=== PATIENT | female | born 1940 | race Two or more races ===

== ENCOUNTER 2016-05-22 17:59 | Inpatient (IN) | payer MEDICARE, OTHER ==
[~2016-05-22] VITALS: Ht 167.6 cm; Wt 91.7 kg
--- NOTE | 2016-05-22 18:02 | NUR ---
[id number] from home: aloc, facial twitching L side, hyperglycemia (high read) unknown time of onset / last know time well - unknown, slurred speech. resp is even and unlabored with nad noted. skin is warm and dry. Dr Silvestre at BS for eval.
--- NOTE | 2016-05-22 18:06 | NUR ---
CODE STROKE CALLED
--- NOTE | 2016-05-22 18:08 | NUR ---
CALLED [facility]'S TELESTROKE HOTLINE AT [phone], SPOKE WITH JERRY, JOY PT, AWAITING CALL BACK FROM
--- NOTE | 2016-05-22 18:21 | NUR ---
oncodalys neurologist repaged, dr villanueva
[2016-05-22] MEDS ORDERED: INSU100I14 SQ (18:24)
[2016-05-22] MEDS ORDERED: PIOG15TA3 PO (18:24)
[2016-05-22] MEDS ORDERED: ATOR40TA PO (18:24)
[2016-05-22] MEDS ORDERED: ASPI81TA2 PO (18:24)
[2016-05-22] MEDS ORDERED: BENA20TA2 PO (18:24)
[2016-05-22] MEDS ORDERED: GLIP10TA11 PO (18:24)
[2016-05-22] MEDS ORDERED: EXEN2PEN SQ (18:24)
[2016-05-22] MEDS ORDERED: INSU100I19 SQ (18:24)
[2016-05-22 18:28] LABS: BASOPHILS # (AUTO) 0.1 /CMM (0.0-0.2); BASOPHILS % (AUTO) 1.2 % (0.0-2.0); EOSINOPHILS % (AUTO) 0.2 % (0.0-6.0); HEMATOCRIT 39 % (33-45); HEMOGLOBIN 12.2 g/dL (11.5-14.8); LYMPHOCYTES # (AUTO) 0.5 /CMM (0.8-4.8); LYMPHOCYTES % (AUTO) 12.4 % (20.0-44.0); MEAN CORPUSCULAR HEMOGLOBIN 32 PG (26.0-33.0); MEAN CORPUSCULAR HGB CONC 32 g/dl (31.0-36.0); MEAN CORPUSCULAR VOLUME 100 fL (82-100); MONOCYTES # (AUTO) 0.3 /CMM (0.1-1.30); MONOCYTES % (AUTO) 6.8 % (2.0-12.0); NEUTROPHILS # (AUTO) 3.4 /CMM (1.8-8.9); NEUTROPHILS % (AUTO) 79.4 % (43.0-81.0); PLATELET COUNT (AUTO) 89 /CMM (150-450); RDW COEFFICIENT OF VARIATION 14.1 (11.5-15.0); RED BLOOD CELL COUNT(AUTO) 3.87 MIL/uL (4.0-5.2); WHITE BLOOD COUNT (AUTO) 4.3 K/uL (4.3-11.0)
[2016-05-22 18:41] LABS: PROTHROMBIN TIME 10.5 SECS (9.5-12.7)
[2016-05-22 18:42] LABS: CALCIUM, SERUM 8.4 mg/dL (8.5-10.1); CARBON DIOXIDE 20 mmol/L (21-32); CHLORIDE 94 mmol/L (98-107); CREATININE 2.1 mg/dL (0.6-1.3); POTASSIUM 5.7 mmol/L (3.5-5.1); SODIUM SERUM 129 mmol/L (136-145); UREA NITROGEN, BLOOD 55 mg/dL (7-18)
[2016-05-22 18:42] LABS: ABG BASE EXCESS -4.2 mmol/L; ABG OXYGEN SATURATION 94.2 % (92.0-98.5); ABG PCO2 40.5 mmHg (35.0-45.0); ABG PH 7.338 (7.350-7.450); ABG PO2 78.6 mmHg (75.0-100.0); ABG TOTAL HEMOGLOBIN 12.7 G/dL (12.0-16.0); AaDO2 22.6 mmHg; COHb 0.8 % (0.5-1.5); MetHb 0.3 % (0.0-1.5); O2Hb 93.2 % (94.0-97.0); SITE, ABG Right Brachial; VENT MODE, BG room air
[2016-05-22 18:47] LABS: TROPONIN I < 0.017 ng/mL (0.00-0.056)
[2016-05-22 19:02] LABS: BAND % (MANUAL) 1 % (0.0-5.0); LYMPHOCYTES % (MANUAL) 11 % (16-48); MONOCYTES % (MANUAL) 7 % (0-11.0); NEUTROPHILS % (MANUAL) 81 (42-76); PLATELET ESTIMATE DECREASED
[2016-05-22 19:20] LABS: GLUCOSE 980 mg/dL (74-106)
[2016-05-22] MEDS ORDERED: CEFTRIAXONE 2 G in IV D5W 100 ML IV SCH (19:30)
[2016-05-22] MEDS ORDERED: ACYCLOVIR IV 1 GM in IV D5W 250 ML IV ONE (19:30)
[2016-05-22] MEDS ORDERED: INSULIN REGULAR, HUMAN 100 UNIT in IV NS 0.9% 99 ML IV PRN ×2 (19:30)
[2016-05-22] MEDS ORDERED: VANCOMYCIN 1 GM in IV D5W 250 ML IV ONE (19:30)
[2016-05-22] MEDS ORDERED: IV SET PRIMARY PUMP SET 1 EA INFUS.SET MC ONE ×3 (19:33→23:30)
[2016-05-22 19:36] LABS: ALBUMIN 3.3 g/dL (3.4-5.0); BILIRUBIN,DIRECT 0.1 mg/dL (0.0-0.2); BILIRUBIN,TOTAL 0.7 mg/dL (0.2-1.0); TOTAL PROTEIN, SERUM 7.8 g/dL (6.4-8.2)
[2016-05-22] MEDS: LEVETIRACETAM (500MG) 500 MG in IV NS 0.9% 100 ML IV SCH ×2 (19:40→20:01)
--- NOTE | 2016-05-22 19:45 | NUR ---
STARTED INSULIN PER MD HERNÁNDEZ
[2016-05-22] MEDS ORDERED: LORAZEPAM INJ 2 MG/ML VIAL ONE ×2 (19:53→20:24)
[2016-05-22 19:58] LABS: LACTIC ACID 1.9 mmol/L (0.4-2.0)
[2016-05-22] MEDS ORDERED: LORAZEPAM INJ 2 MG/ML VIAL IV ONE ×2 (20:00→22:30)
--- NOTE | 2016-05-22 20:40 | NUR ---
MD HERNÁNDEZ AT BED SIDE FOR LP
--- NOTE | 2016-05-22 20:59 | NUR ---
CALLED NURSING SUP. FOR ICU BED
--- NOTE | 2016-05-22 20:59 | NUR ---
NAEL JOSEPH, KENNY MARS COUGAR HUNTER
[2016-05-22] MEDS ORDERED: HALOPERIDOL LACTATE INJ 5 MG/ML VIAL ONE (21:11)
--- NOTE | 2016-05-22 21:15 | NUR ---
MEDICATED PT ORDERED
--- NOTE | 2016-05-22 21:24 | NUR ---
[facility] REPAGED
[2016-05-22 21:40] LABS: APPEARANCE,URINE Clear (CLEAR); BILIRUBIN,URINE Negative (NEGATIVE); BLOOD, URINE Small Ery/uL (NEGATIVE); COLOR,URINE Yellow (YELLOW); KETONES,URINE 15 (NEGATIVE); LEUKOCYTE ESTERASE ,URINE Negative (NEGATIVE); NITRITE, URINE Positive (NEGATIVE); PROTEIN,URINE 30 mg/dl (NEGATIVE); UGLUCOSE 500 MG/DL mg/dL (NEGATIVE); UROBILINOGEN,URINE 0.2 EU/dL (0.2)
--- NOTE | 2016-05-22 21:41 | NUR ---
JENSEN CATH PLACED WITH ASSISTANCE FROM ARVIND LEMON
[2016-05-22 21:44] LABS: CSF GLUCOSE 421 mg/dL (40-70); CSF PROTEIN 56.5 mg/dL (15-45)
[2016-05-22 21:50] LABS: ADD URINE CULTURE NO; BACTERIA,URINE Few /HPF (None Seen); SQUAMOUS EPITHELIAL CELL,UR Rare /HPF (None Seen); WBC,URINE 0-2 /HPF (0-3)
[2016-05-22] MEDS ORDERED: LABETALOL 20 MG/4 ML VIAL ONE (21:53)
--- NOTE | 2016-05-22 22:19 | NUR ---
REPORT GIVEN TO ARVIND SUAZO FOR ICU ADMISSION
[2016-05-22] MEDS ORDERED: LABETALOL HCL IV 100MG VIAL IV ONE (22:30)
[2016-05-22] MEDS ORDERED: HALOPERIDOL LACTATE INJ 5 MG/ML VIAL IM ONE (22:30)
[2016-05-22 23:00] VITALS: BP 145/103
--- NOTE | 2016-05-22 23:00 | NUR ---
INDUSTRIAL TECHNOLOGY EDUCATION TEACHER RCD PT W/DX AMS. PT IS NON RESPONSIVE UNABLE TO FOLLOW COMMANDS. NON VERBAL AT THIS TIME. PT BECOMES VERY AGITATED WHEN TOUCHED FOR REPOSITIONING/ASSESSMENT. NSR ON MONITOR. ON 10 L SIMPLE MASK. NO RESP DIST NOTED AT THIS TIME. EMPTIED 925 ML OF YELLOW CLOUDY URINE FROM JENSEN CATHETER. SKIN INTACT. PT RCD ON 9 UNITS INSULIN DRIP. AWAITING ORDERS AT THIS TIME.
[2016-05-22 23:03] LABS: CSF APPEARANCE CLEAR (CLEAR); CSF COLOR COLORLESS (COLORLESS); CSF WHITE BLOOD CELL COUNT 0 /cumm (0-5); CSF WHITE BLOOD CELL COUNT 1.2 /cumm (0-5)
[2016-05-22] MEDS ORDERED: MAGNESIUM HYDROXIDE 30 ML UDC PO PRN (23:30)
[2016-05-22] MEDS ORDERED: IV NS 0.9% 1,000 ML ONE (23:30)
[2016-05-22] MEDS ORDERED: ACETAMINOPHEN 325 MG TABLET PO PRN (23:30)
[2016-05-22] MEDS ORDERED: ONDANSETRON HCL/PF 4 MG/2 ML VIAL IVP PRN (23:30)
[2016-05-22] MEDS ORDERED: HYDROCODONE/APAP 5/325MG 1 EACH TABLET PO PRN (23:30)
[2016-05-22] MEDS ORDERED: MAG HYDROX/AL HYDROX/SIMETH 30 ML UDC PO PRN (23:30)
[2016-05-22] MEDS ORDERED: Z GUARD REMEDY 2 OZ OINT TP PRN (23:30)
[2016-05-22] MEDS ORDERED: ZOLPIDEM TARTRATE 5 MG TABLET PO PRN (23:30)
--- NOTE | 2016-05-22 23:30 | NUR ---
PANTOGRAPH TRANSFERRER UNABLE TO COMPLETE ASSESSMENT PT IS NON VERBAL AT THIS TIME. NO FAMILY AT BEDSIDE.
[2016-05-22] MEDS: IV NS 0.9% 1,000 ML IV PRN (23:35)
[2016-05-23] VITALS (31 sets, daily range): BP systolic 108–212; BP diastolic 51–191
[2016-05-23 00:04] LABS: CALCIUM, SERUM 8.7 mg/dL (8.5-10.1); CREATININE 2.1 mg/dL (0.6-1.3); POTASSIUM 4.8 mmol/L (3.5-5.1)
[2016-05-23] MEDS: BLOOD SUGAR DIAGNOSTIC 1 EACH STRIP IN SCH ×12 (00:09→20:50)
[2016-05-23] MEDS: INSULIN REGULAR, HUMAN 100 UNIT in IV NS 0.9% 99 ML IV PRN ×4 (00:12→05:11)
[2016-05-23] MEDS ORDERED: HEPARIN SODIUM, PORCINE 5000 UNITS/1 ML VIAL SQ SCH (01:30)
[2016-05-23] MEDS ORDERED: HEPARIN SODIUM, PORCINE 5000 UNITS/1 ML VIAL ONE (01:33)
[2016-05-23] MEDS ORDERED: LORAZEPAM INJ 2 MG/ML VIAL ONE (01:43)
[2016-05-23] MEDS: LORAZEPAM INJ 2 MG/ML VIAL IV PRN ×3 (01:47→20:45)
[2016-05-23] MEDS ORDERED: IV NS 0.9% 100 ML IV ONE (04:22)
[2016-05-23] MEDS ORDERED: ACYCLOVIR IV 1 GM/20 ML VIAL IV ONE (04:40)
[2016-05-23] MEDS ORDERED: INSULIN REGULAR, HUMAN 100 UNIT/ML 10 ML VIAL ONE (04:41)
[2016-05-23] MEDS ORDERED: IV D5W 250 ML IV ONE (04:47)
[2016-05-23] MEDS ORDERED: ACYCLOVIR IV 1 GM in IV D5W 250 ML IV SCH (05:00)
[2016-05-23 05:06] LABS: BASOPHILS % (AUTO) 0.2 % (0.0-2.0); HEMATOCRIT 35 % (33-45); HEMOGLOBIN 11.8 g/dL (11.5-14.8); LYMPHOCYTES # (AUTO) 0.8 /CMM (0.8-4.8); LYMPHOCYTES % (AUTO) 12.1 % (20.0-44.0); MEAN CORPUSCULAR HEMOGLOBIN 32 PG (26.0-33.0); MEAN CORPUSCULAR HGB CONC 34 g/dl (31.0-36.0); MEAN CORPUSCULAR VOLUME 94 fL (82-100); MONOCYTES # (AUTO) 0.3 /CMM (0.1-1.30); MONOCYTES % (AUTO) 4.6 % (2.0-12.0); NEUTROPHILS # (AUTO) 5.3 /CMM (1.8-8.9); NEUTROPHILS % (AUTO) 83.1 % (43.0-81.0); PLATELET COUNT (AUTO) 124 /CMM (150-450); RDW COEFFICIENT OF VARIATION 14.8 (11.5-15.0); RED BLOOD CELL COUNT(AUTO) 3.67 MIL/uL (4.0-5.2); WHITE BLOOD COUNT (AUTO) 6.4 K/uL (4.3-11.0)
[2016-05-23] MEDS: IV NS 0.9% 1,000 ML IV PRN (05:11)
[2016-05-23 05:35] LABS: CALCIUM, SERUM 8.6 mg/dL (8.5-10.1); CREATININE 2.1 mg/dL (0.6-1.3); MAGNESIUM 2.3 mg/dL (1.8-2.4); PHOSPHORUS 3.1 mg/dL (2.5-4.9); POTASSIUM 4.2 mmol/L (3.5-5.1)
[2016-05-23] MEDS ORDERED: DEXTROSE 50%-WATER 50 ML DISP.SYRIN IV PRN (06:00)
--- NOTE | 2016-05-23 06:00 | NUR ---
DERRICK BUILDER RCD ORDERS TO DC INSULIN DRIP AND START PT ON Q4HRS ACCU CHECK. CONTINUE TO MONITOR.
[2016-05-23] MEDS: INSULIN REGULAR, HUMAN 100 UNIT/ML 3 ML VIAL SQ PRN ×5 (06:09→20:51)
--- NOTE | 2016-05-23 06:34 | NUR ---
GRAZING EXAMINER PT REMAINS VERY AGITATED. ABLE TO OPEN EYES AND SQUEEZE HANDS. ONLY ABLE TO MOUTH ONE WORD ANSWERS AT THIS TIME.
[2016-05-23] MEDS: PANTOPRAZOLE 40 MG TABLET.DR PO SCH (07:30)
[2016-05-23] MEDS: BENAZEPRIL HCL 20 MG TABLET PO SCH (08:27)
[2016-05-23] MEDS: ATORVASTATIN 40 MG TABLET PO SCH (08:27)
[2016-05-23] MEDS: ASPIRIN 81 MG TAB.CHEW PO SCH (08:27)
--- NOTE | 2016-05-23 08:28 | NUR ---
PT LETHARGIC BUT AROUSABLE TO VERBAL STIMULI. FOLLOWS DIRECTIONS TO SQUEEZE HANDS AND TRIES TO OPEN HER EYES. IN AND OUT OF SLEEP AND AGITATION, PULLS OFF EKG LEADS AND GOWN. RESPONDS TO DIRECTIONS NOT TO TAKE OFF THE LINES, BUT INTERMITTENTLY WAKES AND PULLS AT MONITORING EQUIPMENT.
[2016-05-23] MEDS ORDERED: SECONDARY IV SET 1 EA INFUS.SET MC ONE (08:30)
--- NOTE | 2016-05-23 10:08 | NUR ---
LEFT WRIST 20G INFILTRATED. ELEVATED SITE. [address] PIV BUT UNSUCCESSFUL. MD WOLFF FOR MIDLINE INSERTION. PARAMEDICAL AIDE NOTIFIED AND IV NURSE IS NOTIFIED.
[2016-05-23] MEDS: HEPARIN SODIUM, PORCINE 5000 UNITS/1 ML VIAL SQ SCH ×2 (11:54→20:46)
--- NOTE | 2016-05-23 12:00 | NUR ---
DR. COLVIN ON THE UNIT TO EVAL THE PATIENT. DISCUSSED CASE WITH MD, PT HAS NEVER HAD HISTORY OF SZ, IT IS MOSTLY LIKELY FROM THE NK WHICH CAUSE THE NEW ONSET. SHE STOPS KEPPRA AND ORDERS FOR FOLLOW UP CT HEAD. ACKNOWLEDGES THE LETHARGIC STATUS OF THE PATIENT SHE RECVD KEPPRA AND ATIVAN AND HALDOL IN THE E.R. AND RENAL FUNCTION IS SLOW (MORNING CREATININE IS 2.1)
--- NOTE | 2016-05-23 12:01 | NUR ---
DR. OSMAN ON THE UNIT TO EVAL THE PATIENT. HE ORDERS VENOUS DUPLEX STAT, KEEP HER NPO FOR NOW UNTIL SHE IS MORE LUCID THEN WE CAN RESTART HER PO MEDICATIONS. DISCONTINUES EMPIRIC ANTIBIOTICS AND ROUTINE KEPPRA. PT IS IN NK WILL TREAT.
[2016-05-23] MEDS ORDERED: D5W IV SCH (17:00)
[2016-05-23] MEDS ORDERED: ACYCLOVIR IV SCH (17:00)
--- NOTE | 2016-05-23 17:26 | NUR ---
PT WAS ABLE TO GET OUT OF HER RESTRAINTS AND CLIMBED OUT OF BED, FOUND SITTING ON THE FLOOR. ON INITIAL ASSESSMENT NO BRUISING OR REDNESS NOTED ON HEAD OR BODY. CT ORDER CHANGED TO STAT ORDER. MENTAL STATUS IS THE SAME IN THAT SHE IS LETHARGIC AND RESPONSIVE TO HER NAME ABLE TO ANSWER SIMPLE QUESTIONS AND SQUEEZE HANDS AND OPEN EYES. VITALS ARE STABLE. LEHR TENDER NOTIFIED, DR. OSMAN NOTIFIED.
--- NOTE | 2016-05-23 20:45 | NUR ---
AUTO ELECTRICIAN PT AGITATED REMOVING ECG LEADS AND ATTEMPTING TO SIT UP IN BED. ATIVAN 1 MG IVP GIVEN. CONTINUE TO MONITOR.
[2016-05-23] MEDS ORDERED: hydrALAZINE HCL IV 20 MG VIAL ONE (21:36)
[2016-05-23] MEDS: hydrALAZINE HCL IV 20 MG VIAL IV PRN (21:40)
--- NOTE | 2016-05-23 21:40 | NUR ---
BLIND STITCH MACHINE OPERATOR BP 211/89 HYDRALAZINE 10 MG IV GIVEN. CONTINUE TO MONITOR.
[2016-05-24] VITALS (26 sets, daily range): BP systolic 135–178; BP diastolic 49–135
[2016-05-24] MEDS: BLOOD SUGAR DIAGNOSTIC 1 EACH STRIP IN SCH ×6 (01:10→21:13)
[2016-05-24] MEDS: LORAZEPAM INJ 2 MG/ML VIAL IV PRN ×4 (01:34→16:48)
[2016-05-24] MEDS: IV NS 0.9% 1,000 ML IV PRN ×3 (01:34→21:00)
--- NOTE | 2016-05-24 01:35 | NUR ---
ORE CRUSHING DUST COLLECTOR PT AGITATED REMOVING ECG LEADS AND ATTEMPTING TO SIT UP IN BED. PT WILL NOT FOLLOW COMMANDS. UNABLE TO REDIRECT. MUMBLES ANSWERS. ATIVAN 1 MG IVP GIVEN. CONTINUE TO MONITOR.
[2016-05-24] MEDS: INSULIN REGULAR, HUMAN 100 UNIT/ML 3 ML VIAL SQ PRN ×5 (01:36→21:15)
[2016-05-24] MEDS ORDERED: hydrALAZINE HCL IV 20 MG VIAL ONE (03:29)
[2016-05-24] MEDS: hydrALAZINE HCL IV 20 MG VIAL IV PRN ×3 (03:33→17:23)
--- NOTE | 2016-05-24 03:35 | NUR ---
TRANSLATOR DEAF BP 189/71 HYDRALAZINE 10 MG IV GIVEN CONTINUE TO MONITOR.
[2016-05-24 05:21] LABS: EOSINOPHILS % (AUTO) 0.2 % (0.0-6.0); HEMATOCRIT 37 % (33-45); HEMOGLOBIN 12.3 g/dL (11.5-14.8); LYMPHOCYTES # (AUTO) 1.8 /CMM (0.8-4.8); LYMPHOCYTES % (AUTO) 15.5 % (20.0-44.0); MEAN CORPUSCULAR HEMOGLOBIN 31 PG (26.0-33.0); MEAN CORPUSCULAR HGB CONC 33 g/dl (31.0-36.0); MEAN CORPUSCULAR VOLUME 95 fL (82-100); MONOCYTES # (AUTO) 0.4 /CMM (0.1-1.30); MONOCYTES % (AUTO) 3.7 % (2.0-12.0); NEUTROPHILS # (AUTO) 9.4 /CMM (1.8-8.9); NEUTROPHILS % (AUTO) 80.6 % (43.0-81.0); PLATELET COUNT (AUTO) 128 /CMM (150-450); RDW COEFFICIENT OF VARIATION 14.5 (11.5-15.0); RED BLOOD CELL COUNT(AUTO) 3.92 MIL/uL (4.0-5.2); WHITE BLOOD COUNT (AUTO) 11.6 K/uL (4.3-11.0)
[2016-05-24 05:22] LABS: CALCIUM, SERUM 8.5 mg/dL (8.5-10.1); CREATININE 1.6 mg/dL (0.6-1.3); MAGNESIUM 2.2 mg/dL (1.8-2.4); PHOSPHORUS 2.7 mg/dL (2.5-4.9); POTASSIUM 4.2 mmol/L (3.5-5.1)
--- NOTE | 2016-05-24 05:39 | NUR ---
HAIR AND MAKEUP DESIGNER PT REMOVED ALL LEADS AND CONTINUES TO STRUGGLE TO GET OUT OF BED. ATIVAN 1 MG IVP GIVEN. PT DOES NOT FOLLOW COMMANDS ONLY ANSWERS TO NAME BUT CONTINUES TO STRUGGLE. CONTINUE TO MONITOR.
[2016-05-24] MEDS: PANTOPRAZOLE 40 MG TABLET.DR PO SCH (07:30)
--- NOTE | 2016-05-24 07:51 | NUR ---
PT PRESENTS WITH FEVER OF 100.3, SINUS TACH AT 107. BLOOD PRESSURE IS HTNSIVE AT 161/70. PA WORKING WITH DR. OSMAN ON THE UNIT TO EVAL THE PATIENT. ORDERS BLOOD CULTURES (CALLED LAB TO NOTIFY) ORDER FOR UA (COLLECTED AND LAB NOTIFIED FOR PICKUP)
[2016-05-24 08:14] LABS: BAND % (MANUAL) 4 % (0.0-5.0); LYMPHOCYTES % (MANUAL) 12 % (16-48); MONOCYTES % (MANUAL) 3 % (0-11.0); NEUTROPHILS % (MANUAL) 81 (42-76)
[2016-05-24 08:15] LABS: ANISOCYTOSIS 1+; PLATELET ESTIMATE DECREASED
[2016-05-24 08:28] LABS: BILIRUBIN,URINE NEGATIVE (NEGATIVE); BLOOD, URINE 2+ Ery/uL (NEGATIVE); COLOR,URINE YELLOW (YELLOW); KETONES,URINE TRACE (NEGATIVE); LEUKOCYTE ESTERASE ,URINE NEGATIVE (NEGATIVE); NITRITE, URINE NEGATIVE (NEGATIVE); PROTEIN,URINE 2+ mg/dl (NEGATIVE); UGLUCOSE 2+ mg/dL (NEGATIVE); UROBILINOGEN,URINE 0.2 EU/dL (0.2)
[2016-05-24 08:36] LABS: CLINITEST,URINE 3/4%
[2016-05-24 08:38] LABS: ADD URINE CULTURE NO; BACTERIA,URINE Few /HPF (None Seen); RBC,URINE 21-50 /HPF (0-2); SQUAMOUS EPITHELIAL CELL,UR Moderate /HPF (None Seen)
[2016-05-24 08:39] LABS: APPEARANCE,URINE CLOUDY (CLEAR); FINE GRANULAR CASTS,URINE Few /LPF (None Seen); URINE AMORPHOUS URATE Few /HPF (None Seen); YEAST,URINE Few /HPF (None Seen)
[2016-05-24] MEDS: ASPIRIN 81 MG TAB.CHEW PO SCH (08:42)
[2016-05-24] MEDS: BENAZEPRIL HCL 20 MG TABLET PO SCH (08:43)
[2016-05-24] MEDS: ATORVASTATIN 40 MG TABLET PO SCH (08:43)
[2016-05-24] MEDS: HEPARIN SODIUM, PORCINE 5000 UNITS/1 ML VIAL SQ SCH ×2 (08:47→21:06)
[2016-05-24] MEDS ORDERED: SECONDARY IV SET 1 EA INFUS.SET MC ONE ×2 (09:01→18:09)
[2016-05-24 09:59] LABS: CREATINE KINASE MB 2.2 ng/mL (0-3.6)
--- NOTE | 2016-05-24 10:47 | NUR ---
CALLED PHARMACY X3 FOR 0900 AZITHROMYCIN EACH TIME THEY STATE THEY WILL SEND IT UP.
[2016-05-24] MEDS: AZITHROMYCIN 500 MG in IV D5W 250 ML IV SCH (11:02)
--- NOTE | 2016-05-24 11:03 | NUR ---
VIRAL SWAB OBTAINED, CALLED LAB FOR PICKUP.
--- NOTE | 2016-05-24 11:41 | NUR ---
DR. COLVIN ON THE UNIT TO EVAL THE PATIENT, SHE GIVES ORDERS FOR EEG ROUTINE
--- NOTE | 2016-05-24 13:05 | NUR ---
PT ATTEMPTING TO CLIMB OUT OF BED, SHE IS ABLE TO SLIP OUT OF RESTRAINTS. LETHARGIC BUT ALERT TO NAME FOLLOWS SIMPLE COMMANDS SUCH SQUEEZE MY HANDS, BUT REMAINS INTERMITTENTLY AGITATED WHEN AWAKE, SHE IS TRYING TO DISROBE AND HAS TRIED TO PULL AT HER IV MULTIPLE TIMES. TRYING TO GET UP OUT OF BED. GAVE ATIVAN FOR SAFETY 1MG.
--- NOTE | 2016-05-24 17:25 | NUR ---
DISCUSSED CASE WITH PT'S HE STATES THAT SHE HAS NO KNOWN ALLERGIES.
[2016-05-24] MEDS: CEFTRIAXONE 1 G in IV D5W 50 ML IV SCH (18:14)
--- NOTE | 2016-05-24 18:41 | NUR ---
CORNELIUS FROM INFECTIOUS DISEASE IN TO EVALUATE THE PATIENT. ORDERS FOR BLOOD TESTS INCLUDING WEST NILE CSF AND SERUM AND HIV ANTIGEN.
[2016-05-25] VITALS (32 sets, daily range): BP systolic 109–202; BP diastolic 51–109
[2016-05-25] MEDS: BLOOD SUGAR DIAGNOSTIC 1 EACH STRIP IN SCH ×6 (01:01→21:37)
[2016-05-25] MEDS: INSULIN REGULAR, HUMAN 100 UNIT/ML 3 ML VIAL SQ PRN ×6 (01:03→21:35)
[2016-05-25] MEDS: IV NS 0.9% 1,000 ML IV PRN (01:45)
[2016-05-25] MEDS: hydrALAZINE HCL IV 20 MG VIAL IV PRN ×2 (02:03→09:14)
[2016-05-25] MEDS: LORAZEPAM INJ 2 MG/ML VIAL IV PRN ×3 (02:30→16:49)
[2016-05-25 04:53] LABS: BASOPHILS % (AUTO) 0.3 % (0.0-2.0); HEMATOCRIT 34 % (33-45); HEMOGLOBIN 11.2 g/dL (11.5-14.8); LYMPHOCYTES % (AUTO) 17.2 % (20.0-44.0); MEAN CORPUSCULAR HEMOGLOBIN 31 PG (26.0-33.0); MEAN CORPUSCULAR HGB CONC 33 g/dl (31.0-36.0); MEAN CORPUSCULAR VOLUME 95 fL (82-100); MONOCYTES # (AUTO) 0.3 /CMM (0.1-1.30); MONOCYTES % (AUTO) 4.1 % (2.0-12.0); NEUTROPHILS # (AUTO) 4.8 /CMM (1.8-8.9); NEUTROPHILS % (AUTO) 78.4 % (43.0-81.0); RDW COEFFICIENT OF VARIATION 14.9 (11.5-15.0); RED BLOOD CELL COUNT(AUTO) 3.57 MIL/uL (4.0-5.2); WHITE BLOOD COUNT (AUTO) 6.1 K/uL (4.3-11.0)
[2016-05-25 05:10] LABS: CALCIUM, SERUM 8.2 mg/dL (8.5-10.1); CREATININE 1.4 mg/dL (0.6-1.3); PHOSPHORUS 2.2 mg/dL (2.5-4.9); POTASSIUM 3.8 mmol/L (3.5-5.1)
[2016-05-25 05:12] LABS: PLATELET COUNT (AUTO) 94 /CMM (150-450)
[2016-05-25 06:06] LABS: ANISOCYTOSIS 1+; BASOPHILS % (MANUAL) 0 % (0.0-2.0); EOSINOPHILS % (MANUAL) 0 % (0-4); LYMPHOCYTES % (MANUAL) 18 % (16-48); MONOCYTES % (MANUAL) 5 % (0-11.0); NEUTROPHILS % (MANUAL) 77 (42-76)
[2016-05-25 06:07] LABS: PLATELET ESTIMATE DECREASED
--- NOTE | 2016-05-25 06:20 | NUR ---
PIG CONVEYOR OPERATOR: PT REMAINED CONFUSED AND RESTLESS MOSTLY DURING THE SHIFT. WT EPISODES OF TRYING TO PULL OR REMOVE TUBINGS. BILAT. SOFT WRIST RESTRAINTS IN PLACE PER PROTOCOL WT GOOD CIRCULATION AND NO NEW SKIN BREAKDOWN WHEN RELEASED AND CHECKED. ABLE TO FOLLOW SIMPLE COMMANDS AND MUMBLES HER NAME AND DATE WHEN ASKED. REMAINED ON 4L 02 VIA NC WT NO ACUTE DISTRESS. ATIVAN GIVEN FOR RESTLESSNESS WT MINIMAL HELP. NOTED WT ELEVATED BP BUT HAD TO BE RECHECKED TO GET ACCURATE READING PT TRIED TO SCREAM AND GOT COMBATIVE EVERY TIME THE CUFF STARTED TO INFLATE. HYDRALAZINE GIVEN X1 PRN. MAX. TEMP=99.4 WT COOLING MEASURES GIVEN. CONTINUE ON NS AT 100ML/HR WT NO S/S OF INFILTRATION ON MARIA E MID LINE. F/C PATENT AND INTACT DRAINING GOOD AMT. OF CLOUDY YELLOW URINE. BLOOD SUGAR CHECKED ORDERED WT NO CRITICAL RESULTS AND COVERED WT INSULIN PER SS. ALL NEEDS MET. SAFETY PRECAUTION NOTED AT ALL TIMES.
[2016-05-25] MEDS: PANTOPRAZOLE 40 MG TABLET.DR PO SCH (07:30)
--- NOTE | 2016-05-25 07:35 | NUR ---
PRINTED CIRCUIT BOARDS BEVELER: pt.is reactive by touch, on wrists restraints, agitating cont. during night, tried to pull out lines and leave bed by report, unable to pull in NGT for meds, coughing with swallowing by report, Ativan was given, unable to follow commands, no Sz activity, continue safety prevention measures
--- NOTE | 2016-05-25 07:45 | NUR ---
BALLAST CLEANING MACHINE OPERATOR: PA student is in room, updated with pt.current condition, VS, I/O, restraints, mental status, pt.is unable to swallow well/aspiration risk by report, asks switch PO meds for IV
--- NOTE | 2016-05-25 08:20 | NUR ---
COMPUTATIONAL LINGUIST: is in room, updated with pt.mental status, VS, I/O, orders
[2016-05-25] MEDS: ASPIRIN 81 MG TAB.CHEW PO SCH (09:00)
[2016-05-25] MEDS: ATORVASTATIN 40 MG TABLET PO SCH (09:00)
[2016-05-25] MEDS: BENAZEPRIL HCL 20 MG TABLET PO SCH (09:00)
--- NOTE | 2016-05-25 09:00 | NUR ---
BULK COOLER INSTALLER: Pt. is in room, spoke re pt.current status, VS, POC, orders, mental status, pt.is more awake, but still confused. Ice chips were given, still with poten.aspiration risk/weak gag reflex
[2016-05-25] MEDS: HEPARIN SODIUM, PORCINE 5000 UNITS/1 ML VIAL SQ SCH ×2 (09:01→21:33)
[2016-05-25] MEDS: AZITHROMYCIN 500 MG in IV D5W 250 ML IV SCH (09:07)
--- NOTE | 2016-05-25 09:15 | NUR ---
JAWBONE PULLER: pt.is restless, agitating, unable to follow commands, Ativan 1mg IV given
[2016-05-25] MEDS ORDERED: IV 1/2NS 1000 ML 1,000 ML IV PRN (09:30)
--- NOTE | 2016-05-25 10:56 | NUR ---
STONE ROUGHER: is in room, updated with pt.current condition, mental status, agitating, VS, BS, I/O, IVF, NPO, meds, see new orders
--- NOTE | 2016-05-25 12:20 | NUR ---
SITE SAFETY COORDINATOR: pt.is reactive for name, can answer name, denies pain, confused, still restless with short rest periods, grimacing, moaning occas., c/o multiple muscles pain with activity/manipulation, SR/ST max 110, SBP over 100, below 50, O2 sat. WNL, continue titrate O2, updated, confirmed: change IVF for D5 1/2 NS same rate, added Alfonzoir
[2016-05-25] MEDS: IV D5/0.45 NACL 1,000 ML IV PRN (13:16)
[2016-05-25] MEDS ORDERED: IV SET PRIMARY PUMP SET 1 EA INFUS.SET MC ONE (14:23)
[2016-05-25] MEDS: POTASSIUM PHOSPHATE MM 7.5 MMOL in IV D5W 100 ML IV SCH ×2 (14:28→16:42)
--- NOTE | 2016-05-25 15:22 | NUR ---
CYTOLOGY TEACHER: pt.family is at BS, notified re pt.status, orders, VS, POC
[2016-05-25] MEDS: CEFTRIAXONE 1 G in IV D5W 50 ML IV SCH (17:38)
--- NOTE | 2016-05-25 17:45 | NUR ---
FACILITY ASSISTANT: was in room, updated with pt.history, pt.current condition, VS, mental status, BS, skin problem, see new orders. Lab was notified re: STAT orders, included misc.order: smear periph.blood r/o TTP, adams13 activity
--- NOTE | 2016-05-25 18:42 | NUR ---
PHOTOVOLTAIC FABRICATION TECHNICIAN: Alyx, ID OPERATION AGENT is in room, notified re pt.mental current status, VS, orders, skin problem, c/o multiple muscles pain with activity, NPO, labs, see new orders
--- NOTE | 2016-05-25 20:04 | NUR ---
PHARMACY BUYER. INITIAL ASSESSMENT. RECEIVED THE PT REST ON THE BED. WAKE, LETHARGIC. BEND UP SHOWING NSR. OXYGEN 3L VIA NASAL CANNULA. SAT 98 %. IV LT UPPER ARM MID LINE. IVF D51/2NS 100ML/H. FRENCH SOFT WRIST RESTRAINT. CHECKED AND RELEASED. NO INJURY OR REDNESS NOTED. HOB ELEVATED. TURN AND REPOSITION Q2H. WILL CONTINUE TO MONITOR VITALS.
[2016-05-25 20:20] LABS: FERRITIN 515 ng/mL (8-388)
[2016-05-25 20:28] LABS: INR 1.01 (0.87-1.13); PROTHROMBIN TIME 10.9 SECS (9.5-12.7)
[2016-05-25 20:59] LABS: D-DIMER 1.19 mg/L(FEU (0.17-0.50)
[2016-05-25] MEDS: FLUCONAZOLE IN NS 100 MG in PREMIX 1 EA IV SCH ×2 (21:15)
[2016-05-25] MEDS: INSULIN DETEMIR 100 UNIT/ML CARTRIDGE SQ SCH (21:34)
[2016-05-26] VITALS (22 sets, daily range): BP systolic 125–181; BP diastolic 51–100
[2016-05-26] MEDS: BLOOD SUGAR DIAGNOSTIC 1 EACH STRIP IN SCH ×6 (00:17→21:13)
[2016-05-26] MEDS: INSULIN REGULAR, HUMAN 100 UNIT/ML 3 ML VIAL SQ PRN ×6 (00:18→21:15)
[2016-05-26] MEDS: IV D5/0.45 NACL 1,000 ML IV PRN ×2 (01:40→12:13)
--- NOTE | 2016-05-26 03:21 | NUR ---
CLOTH COLORS EXAMINER. AM CARE, ORAL CARE, BED BATH GIVEN. LINEN CHANGED. REMAINING SAMOYGEN 3L VIA NASAL CANNULA. SAT 98 %. NO ACUTE DISTRESS NOTED. CADIAC MONITOR SHOWING NSR. IV LT UPPER ARM MID LINE. IVF D51/2NS 100ML/H. FRENCH SOFT WRIST RESTRAINT CHECKED AND RELEASED. NO INJURY OR REDNESS NOTED. FC PATENT. URINE DRAINING. A FEBRILE. NPO. TURN AND REPOSITION Q2H. WILL CONTINUE TO MONITOR VITALS.
[2016-05-26 05:31] LABS: BASOPHILS % (AUTO) 0.2 % (0.0-2.0); EOSINOPHILS % (AUTO) 0.9 % (0.0-6.0); HEMATOCRIT 31 % (33-45); HEMOGLOBIN 10.3 g/dL (11.5-14.8); LYMPHOCYTES # (AUTO) 1.2 /CMM (0.8-4.8); LYMPHOCYTES % (AUTO) 25.5 % (20.0-44.0); MEAN CORPUSCULAR HEMOGLOBIN 32 PG (26.0-33.0); MEAN CORPUSCULAR HGB CONC 34 g/dl (31.0-36.0); MEAN CORPUSCULAR VOLUME 95 fL (82-100); MONOCYTES # (AUTO) 0.2 /CMM (0.1-1.30); MONOCYTES % (AUTO) 5.1 % (2.0-12.0); NEUTROPHILS # (AUTO) 3.3 /CMM (1.8-8.9); NEUTROPHILS % (AUTO) 68.3 % (43.0-81.0); PLATELET COUNT (AUTO) 87 /CMM (150-450); RDW COEFFICIENT OF VARIATION 14.9 (11.5-15.0); RED BLOOD CELL COUNT(AUTO) 3.26 MIL/uL (4.0-5.2); WHITE BLOOD COUNT (AUTO) 4.8 K/uL (4.3-11.0)
[2016-05-26 05:41] LABS: CALCIUM, SERUM 8.1 mg/dL (8.5-10.1); CREATININE 1.1 mg/dL (0.6-1.3); MAGNESIUM 1.9 mg/dL (1.8-2.4); PHOSPHORUS 2.4 mg/dL (2.5-4.9); POTASSIUM 3.5 mmol/L (3.5-5.1)
[2016-05-26 06:52] LABS: BAND % (MANUAL) 2 % (0.0-5.0); EOSINOPHILS % (MANUAL) 1 % (0-4); LYMPHOCYTES % (MANUAL) 16 % (16-48); MONOCYTES % (MANUAL) 5 % (0-11.0); NEUTROPHILS % (MANUAL) 76 (42-76); PLATELET ESTIMATE DECREASED
--- NOTE | 2016-05-26 07:25 | NUR ---
DRAY DRIVER: pt.is with wrists restraints, reactive for name, restless, unable to follow commands well, agitating, oriented for place, time, POC, SR, SBP over 100 below 160, O2 sat. 98-100% on 3L n/c, down to 2L, no c/o pain, but c/o multiple muscles rigid, painful, BS 180,150 over night
[2016-05-26] MEDS: LORAZEPAM INJ 2 MG/ML VIAL IV PRN (07:31)
--- NOTE | 2016-05-26 07:40 | NUR ---
ORDNANCE KEEPER: PA student is in room, updated with pt.current condition, neuro status, VS, IVF, I/O, BS, labs, NPO, restraints, orders, meds.
--- NOTE | 2016-05-26 08:10 | NUR ---
CLINICAL PHARMACIST: face/skin/nose/mouth care done, removed restraints under observation, skin is intact, same bruises, pt.said her name, , she is in hospital, but dont remember which hospital, tries to remove n/c, gown, restless occas., oriented for POC again
--- NOTE | 2016-05-26 08:30 | NUR ---
FUR REPAIR INSPECTOR: pt.is more awake now, Ox2, cooperative, no c/o now, restraints off under monitoring, is in the room, updated with pt.condition, VS, neuro status, IVF, I/O, BSL, said: pt.needs swallow, PT eval., titrate O2 down, stop IVF with diet starting, d/c F/c if pt.will be able to leave bed with PT and spoke with pt.. Pt.was encouraged for good activity and POC
[2016-05-26] MEDS: PANTOPRAZOLE 40 MG TABLET.DR PO SCH (08:42)
[2016-05-26] MEDS ORDERED: POTASSIUM PHOSPHATE MM 15 MMOL in IV D5W 250 ML IV SCH (09:00)
--- NOTE | 2016-05-26 09:00 | NUR ---
MOUNTER AUTOMATIC: pt. is in room, restraints removed, continue observe, O2 sat. 97-100%, N/C 1L, pt.is more awake can follow simple commands, oriented again for POC, SR, RR WNL, able swallow ice chips
[2016-05-26] MEDS: ASPIRIN 81 MG TAB.CHEW PO SCH (09:27)
[2016-05-26] MEDS: HEPARIN SODIUM, PORCINE 5000 UNITS/1 ML VIAL SQ SCH ×2 (09:27→21:13)
[2016-05-26] MEDS: ATORVASTATIN 40 MG TABLET PO SCH (09:27)
[2016-05-26] MEDS: BENAZEPRIL HCL 20 MG TABLET PO SCH (09:27)
[2016-05-26] MEDS: POTASSIUM PHOSPHATE MM 7.5 MMOL in IV D5W 100 ML IV SCH ×2 (09:58→12:28)
--- NOTE | 2016-05-26 10:00 | NUR ---
WET PLANT OPERATOR: pt is rest, awake, Ox3, can follow commands, but still weak/sleepy occas., tracking well with encouraged activity, restraints off, demonstrates fall/injury risk understanding, instructed for safety measures, can use remote control, O2sat 97-98%, continue r/a, confirmed continue Heparin 5000u sq q12h
--- NOTE | 2016-05-26 11:25 | NUR ---
RECONSTRUCTIVE SURGEON: is in the room to eval pt, updated with VS, pt.current condition and progress, (but pt.is sleepy now), labs, IVF, skin status, meds, orders (incl.heparin,transfer), see new orders
--- NOTE | 2016-05-26 12:05 | NUR ---
TOWER EXCAVATOR OPERATOR: removed f/c, pt.was on chair for 30 min, tolerated well, O2 sat. 94-98 on O2r/a, VS WNL, no c/o
--- NOTE | 2016-05-26 14:27 | NUR ---
TURN DOWN ATTENDANT: O2 sat. 94-98% on r/a, RR WNL, but pt.had sleep apnea episodes, will notify next shift,
--- NOTE | 2016-05-26 14:53 | NUR ---
LOWERATOR OPERATOR: pt. is in room, notified re pt.current condition, VS, POC, orders
--- NOTE | 2016-05-26 15:40 | NUR ---
DEAN OF GRADUATE STUDIES: pt.has short sleep apnea episodes with O2 sat. down to 80s, resumed O2 n/c 2L
[2016-05-26] MEDS: CEFTRIAXONE 1 G in IV D5W 50 ML IV SCH (17:34)
[2016-05-26] MEDS: FLUCONAZOLE IN NS 100 MG in PREMIX 1 EA IV SCH ×2 (18:14)
[2016-05-26] MEDS: INSULIN DETEMIR 100 UNIT/ML CARTRIDGE SQ SCH (21:18)
--- NOTE | 2016-05-26 21:34 | NUR ---
DIGITAL CONTENT SPECIALIST: PT TRANSFERRED TO [facility] ROOM 118-2. REPORT GIVEN TO CYNTHIA. ALL DUE MEDS GIVEN AND PT IN STABLE CONDITION. PT STATED THAT SHE IS ALLERGIC TO PENICILLINS (GIVES HER RASH) AND ALSO OYSTERS (MAKES HER GO TO THE REST ROOM). WT OCCASIONAL COUGHING WT NO PHLEGM NOTED. ENDORSED TO CYNTHIA TO FOLLOW-UP WT .
--- NOTE | 2016-05-26 21:35 | NUR ---
emeli rn notes received pts and report to icu nurse cesar , pts is alert sleepy able to make needs known , v/s stable afebrile on tele sr on the monitor no sob no distress noted ,denies pain at this time . on 2 liters of o2 via nc sating 98 % all needs attended too call light within reach , pts remains npo , for st eval , with iv fluids of d5 1/2 ns at 100cc/hrs on progress , kept pts clean dry and comfortable , turned and reposition hob elevated , no pts belongings received from from icu.will continue to monitor pts.
[2016-05-27] VITALS (9 sets, daily range): BP systolic 116–170; BP diastolic 60–78
[2016-05-27] MEDS: BLOOD SUGAR DIAGNOSTIC 1 EACH STRIP IN SCH ×5 (00:20→21:38)
[2016-05-27] MEDS: INSULIN REGULAR, HUMAN 100 UNIT/ML 3 ML VIAL SQ PRN ×5 (00:25→21:39)
--- NOTE | 2016-05-27 00:26 | NUR ---
emeli rn notes bloos sugar for 1am is 193 regular insulin of 4 units given per sliding scale, pts is stable on iv hydration , will check bloodsugar again at 5am, will continue to monitor pts
[2016-05-27] MEDS: IV D5/0.45 NACL 1,000 ML IV PRN (01:58)
--- NOTE | 2016-05-27 05:00 | NUR ---
FELISA RN NOTES BLOOD SUGAR AT 5AM IS 172 -4 UNITS OF REGULAR INSULIN GIVEN PER SLIDING SCALE
--- NOTE | 2016-05-27 07:15 | NUR ---
RN FEL[facility] INITIAL NOTES RECEIVED REPORT AND PT FROM PM NURSE. A&O X 3, ON 2L NC SAT ABOVE 97%, ON TELE MON SR 88 WITH 1ST DEGREE AV BLOCK, NO SOB, LT UPP MIDLINE, LT AC IV SITES ALL INTACT AND NO S.S OF INFILTRATION NOTED, ALL NEEDS MET, ALL SAFETY MEASURES INITIATED, SIDE RAILS X2, BED LOW AND LOCKED, CALL LIGHT WITHIN REACH, WILL CONTINUE TO MONITOR.
[2016-05-27] MEDS: PANTOPRAZOLE 40 MG TABLET.DR PO SCH (07:30)
--- NOTE | 2016-05-27 07:48 | NUR ---
FEL[facility] RN NOTES ENDORSE TO RN DAY SHIFT FOR CONTINUITY OF CARE PTS IS STABLE , NO CHANGE OF CONDITION NOTED .
[2016-05-27] MEDS: ATORVASTATIN 40 MG TABLET PO SCH (07:54)
[2016-05-27] MEDS: ASPIRIN 81 MG TAB.CHEW PO SCH (07:54)
[2016-05-27] MEDS: HEPARIN SODIUM, PORCINE 5000 UNITS/1 ML VIAL SQ SCH ×2 (07:55→21:34)
[2016-05-27] MEDS: BENAZEPRIL HCL 20 MG TABLET PO SCH (07:55)
--- NOTE | 2016-05-27 07:55 | NUR ---
RN FELISA NOTES PT NPO STATUS DUE TO PENDING SWALLOW EVALUATION, HELD ALL PO MEDS, HELD HEP SQ DUE TO LOW PLATELETS 87.
[2016-05-27 10:03] LABS: BASOPHILS % (AUTO) 0.6 % (0.0-2.0); EOSINOPHILS # (AUTO) 0.1 /CMM (0.0-0.7); EOSINOPHILS % (AUTO) 1.9 % (0.0-6.0); HEMATOCRIT 30 % (33-45); HEMOGLOBIN 9.8 g/dL (11.5-14.8); LYMPHOCYTES # (AUTO) 1.2 /CMM (0.8-4.8); LYMPHOCYTES % (AUTO) 29.3 % (20.0-44.0); MEAN CORPUSCULAR HEMOGLOBIN 31 PG (26.0-33.0); MEAN CORPUSCULAR HGB CONC 33 g/dl (31.0-36.0); MEAN CORPUSCULAR VOLUME 94 fL (82-100); MONOCYTES # (AUTO) 0.2 /CMM (0.1-1.30); MONOCYTES % (AUTO) 6.1 % (2.0-12.0); NEUTROPHILS # (AUTO) 2.5 /CMM (1.8-8.9); NEUTROPHILS % (AUTO) 62.1 % (43.0-81.0); PLATELET COUNT (AUTO) 92 /CMM (150-450); RDW COEFFICIENT OF VARIATION 14.7 (11.5-15.0); RED BLOOD CELL COUNT(AUTO) 3.17 MIL/uL (4.0-5.2)
[2016-05-27 10:20] LABS: ALBUMIN 2.1 g/dL (3.4-5.0); BILIRUBIN,TOTAL 0.6 mg/dL (0.2-1.0); CREATININE 1.1 mg/dL (0.6-1.3); MAGNESIUM 1.8 mg/dL (1.8-2.4); PHOSPHORUS 2.7 mg/dL (2.5-4.9); POTASSIUM 3.4 mmol/L (3.5-5.1)
[2016-05-27 11:18] LABS: BASOPHILS % (MANUAL) 0 % (0.0-2.0); EOSINOPHILS % (MANUAL) 4 % (0-4); LYMPHOCYTES % (MANUAL) 30 % (16-48); MONOCYTES % (MANUAL) 2 % (0-11.0); NEUTROPHILS % (MANUAL) 63 (42-76); REACTIVE LYMPHOCYTES 1 % (0-0)
[2016-05-27 11:19] LABS: ANISOCYTOSIS 1+; PLATELET ESTIMATE DECREASED
[2016-05-27] MEDS ORDERED: IV SET PRIMARY PUMP SET 1 EA INFUS.SET MC ONE (16:50)
[2016-05-27] MEDS: FLUCONAZOLE IN NS 100 MG in PREMIX 1 EA IV SCH ×2 (17:49)
[2016-05-27] MEDS: CEFTRIAXONE 1 G in IV D5W 50 ML IV SCH (17:49)
--- NOTE | 2016-05-27 20:00 | NUR ---
UNIVERSITY RELATIONS DIRECTOR NOTE PT IN BED ASLEEP, AROUSABLE. A/O X 2, NO SOB, NO DISTRESS OR DISCOMFORT NOTED. DENIES PAIN. MARIA E MIDLINE INTACT AND PATENT, LT ARM HL #18 G INTACT AND PATENT. PT HAS MULTIPLE BRUISES ON RT ARM AND LT ARM. BILATERAL HAND WITH EDEMA ALSO ON EDEMA ON LOWER EXT'S. NO S/S OF HYPO OR HYPERGLYCEMIA NOTED. KEPT ALL EXT'S ELEVATED. SIDE RAIL UP X 3 AND CALL LIGHT WITHIN REACH. CONTINUE TO MONITOR HER. Addendum: 05/27/16 at 2325 by COREY HAMM RN ON TELE SR HR 95.
[2016-05-27] MEDS ORDERED: hydrALAZINE HCL 10 MG TABLET ONE (20:17)
--- NOTE | 2016-05-27 20:21 | NUR ---
RN NOTES - ELEVATED BP LATEST BP 170/74. PATIENT'S EXISTING ORDER FOR HYDRALAZINE IS IVP, BUT PATIENT IS TELE STATUS. KENNY ODEN MADE AWARE, WITH NEW ORDER FOR [id number] MG PO Q6H FOR SBP GREATER THAN 160. WILL CARRY OUT ALL NEW ORDERS AND MONITOR CLOSELY
[2016-05-27] MEDS: hydrALAZINE HCL 10 MG TABLET PO PRN (20:34)
--- NOTE | 2016-05-27 20:41 | NUR ---
BURRING WHEEL OPERATOR NOTE HYDRALAZINE 10 MG PO GIVEN FOR HIGH BP 170/74. CONTINUE TO MONITOR HER.
--- NOTE | 2016-05-27 21:30 | NUR ---
LARRY OPERATOR NOTE B/P CAME DOWN TO 145/78
[2016-05-27] MEDS: INSULIN DETEMIR 100 UNIT/ML CARTRIDGE SQ SCH (21:37)
[2016-05-28] VITALS (8 sets, daily range): BP systolic 116–189; BP diastolic 55–86
[2016-05-28] MEDS: BLOOD SUGAR DIAGNOSTIC 1 EACH STRIP IN SCH ×4 (05:56→21:32)
[2016-05-28] MEDS: INSULIN REGULAR, HUMAN 100 UNIT/ML 3 ML VIAL SQ PRN ×4 (05:58→21:31)
--- NOTE | 2016-05-28 06:19 | NUR ---
MANAGING BROKER NOTE PT IN BED AWAKE. NO DISTRESS OR DISCOMFORT NOTED. DENIES PAIN. ON TELE SR 88. SIDE RAILS UP X 3 AND CALL LIGHT WITH IN REACH. WILL ENDORSE TO DAY SHIFT NURSE FOR CONTINUE TO CARE.
[2016-05-28 08:01] LABS: BASOPHILS % (AUTO) 0.5 % (0.0-2.0); EOSINOPHILS # (AUTO) 0.1 /CMM (0.0-0.7); EOSINOPHILS % (AUTO) 1.9 % (0.0-6.0); HEMATOCRIT 32 % (33-45); HEMOGLOBIN 10.6 g/dL (11.5-14.8); LYMPHOCYTES # (AUTO) 1.3 /CMM (0.8-4.8); LYMPHOCYTES % (AUTO) 31.7 % (20.0-44.0); MEAN CORPUSCULAR HEMOGLOBIN 31 PG (26.0-33.0); MEAN CORPUSCULAR HGB CONC 33 g/dl (31.0-36.0); MEAN CORPUSCULAR VOLUME 93 fL (82-100); MONOCYTES # (AUTO) 0.3 /CMM (0.1-1.30); MONOCYTES % (AUTO) 8.7 % (2.0-12.0); NEUTROPHILS # (AUTO) 2.3 /CMM (1.8-8.9); NEUTROPHILS % (AUTO) 57.2 % (43.0-81.0); PLATELET COUNT (AUTO) 92 /CMM (150-450); RDW COEFFICIENT OF VARIATION 14.1 (11.5-15.0); RED BLOOD CELL COUNT(AUTO) 3.41 MIL/uL (4.0-5.2)
[2016-05-28 08:06] LABS: CALCIUM, SERUM 8.7 mg/dL (8.5-10.1); CREATININE 1.1 mg/dL (0.6-1.3); POTASSIUM 4.2 mmol/L (3.5-5.1)
[2016-05-28] MEDS: ASPIRIN 81 MG TAB.CHEW PO SCH (08:06)
[2016-05-28] MEDS: BENAZEPRIL HCL 20 MG TABLET PO SCH (08:06)
[2016-05-28] MEDS: ATORVASTATIN 40 MG TABLET PO SCH (08:06)
[2016-05-28] MEDS: PANTOPRAZOLE 40 MG TABLET.DR PO SCH (08:06)
[2016-05-28] MEDS: hydrALAZINE HCL 10 MG TABLET PO PRN (08:37)
--- NOTE | 2016-05-28 09:00 | NUR ---
MOLASSES COLORING OPERATOR NOTE Pt resting in bed, AOx3. On 2L O2. BP 189/86, temp 99. Denies chest pain, c/o SOB since being admitted. Gave PRN hydralazine for BP. MARIA E and left arm SL. All needs met will cont to monitor.
[2016-05-28 10:01] LABS: EOSINOPHILS % (MANUAL) 2 % (0-4); LYMPHOCYTES % (MANUAL) 33 % (16-48); MONOCYTES % (MANUAL) 10 % (0-11.0); NEUTROPHILS % (MANUAL) 55 (42-76); PLATELET ESTIMATE DECREASED
[2016-05-28 10:15] LABS: *WEST NILE VIRUS, IgG, SERUM Negative (Negative)
[2016-05-28] MEDS: HEPARIN SODIUM, PORCINE 5000 UNITS/1 ML VIAL SQ SCH ×2 (10:30→21:00)
[2016-05-28 12:10] LABS: *WEST NILE VIRUS, IgM, SERUM Negative (Negative)
[2016-05-28] MEDS: MENTHOL/CETYLPYRD (CEPACOL) 1 LOZ LOZENGE PO PRN (15:18)
[2016-05-28] MEDS ORDERED: IPRATROPIUM NEB FS 0.5 MG/2.5 ML AMPUL.NEB NEB PRN (16:00)
[2016-05-28] MEDS ORDERED: SECONDARY IV SET 1 EA INFUS.SET MC ONE (17:07)
[2016-05-28] MEDS ORDERED: IV SET PRIMARY PUMP SET 1 EA INFUS.SET MC ONE (17:10)
[2016-05-28] MEDS: CEFTRIAXONE 1 G in IV D5W 50 ML IV SCH (17:24)
[2016-05-28] MEDS: FLUCONAZOLE IN NS 100 MG in PREMIX 1 EA IV SCH ×2 (18:07)
--- NOTE | 2016-05-28 18:11 | NUR ---
NETWORK OPERATIONS MANAGER NOTE VSS. Speech eval done, pt requested pureed diet d/t difficulty swallowing b/c of cold. Lozenges given PRN for throat. No BM since 05/20/16, pt refused laxative, let pt know she has medications available for BM. Faxed request for medical records to pt's PCP, paper in chart. PRN nebs ordered. All needs met. Will endorse to next RN.
[2016-05-28] MEDS ORDERED: ALBUTEROL FS 2.5 MG/3 ML VIAL.NEB NEB PRN (19:30)
--- NOTE | 2016-05-28 19:48 | NUR ---
FILLING TECHNICIAN NOTE PT IN BED ASLEEP, AROUASABLE. A/O X 2, NO SOB, NO DISTRESS OR DISCOMFORT NOTED. DENIES PAIN. REPOSITION HER FOR SKIN AND COMFORT MANAGEMENT. ON RA O2 SAT IS 91%, APPLIED 02 2L VIA N/C O2 SAT 96%. REMINDED PT TO NOT TO REMOVE THE N/C. PT COMPLIED. ON TELE SR HR 86. MARIA E WITH MIDLINE INTACT AND PATENT. ALSO H/L LAC # 18 G INTACT AND PATENT. SIDE RAILS UP X 3 AND CALL LIGHT WITHIN REACH. VSS. CONTINUE TO MONITOR HER.
[2016-05-28 20:14] LABS: *MYCOPLASMA PNEUMONIAE IgG 251 U/mL (0-99); *MYCOPLASMA PNEUMONIAE IgM <770 U/mL (0-769)
[2016-05-28] MEDS ORDERED: Z GUARD REMEDY 2 OZ OINT TP PRN (21:00)
--- NOTE | 2016-05-28 21:16 | NUR ---
GLAZIER SUPERVISOR NOTE KENNY PERFORMANCE MANAGER INFORMED PT PLT IS 93, PERFORMANCE MANAGER GAVE ORDER TO HOLD THE HEPARIN FOR 2100.
[2016-05-28] MEDS: INSULIN DETEMIR 100 UNIT/ML CARTRIDGE SQ SCH (21:32)
[2016-05-29] VITALS: BP 141/61
[2016-05-29 04:00] VITALS: BP 149/65
[2016-05-29] MEDS: BLOOD SUGAR DIAGNOSTIC 1 EACH STRIP IN SCH ×4 (05:57→21:28)
[2016-05-29] MEDS: INSULIN REGULAR, HUMAN 100 UNIT/ML 3 ML VIAL SQ PRN ×4 (06:13→21:27)
--- NOTE | 2016-05-29 06:41 | NUR ---
LOADING MACHINE ADJUSTER NOTE PT IN BED AWAKE. NO DISTRESS OR DISCOMFORT NOTED. DENIES PAIN. ON TELE SR 82. SIDE RAILS UP X 3 AND CALL LIGHT WITH IN REACH. WILL ENDORSE TO DAY SHIFT NURSE FOR CONTINUE TO CARE.
[2016-05-29] MEDS: HEPARIN SODIUM, PORCINE 5000 UNITS/1 ML VIAL SQ SCH ×2 (07:37→21:00)
--- NOTE | 2016-05-29 07:39 | NUR ---
PROJECT FINANCIAL ANALYST NOTES WILL HOLD HEPARIN SQ PLATELETS ARE LOW. WEB APPLICATIONS ADMINISTRATOR NOTIFIED.
--- NOTE | 2016-05-29 07:53 | NUR ---
MACHINED PARTS METAL SPRAYER INITIAL NOTES RECEIVED REPORT AND PT FROM PM NURSE, PT RESTING IN BED, NO ACUTE DISTRESS OR SOB AT THIS TIME, A&O X3, ON 2L NC SAT ABOVE 97%, ON TELE MON SR 85, LT UPPER MIDLINE, LT AC 18 G ALL INTACT AND PATENT NO S.S OF INFECTION OR INFILTRATION, ALL NEEDS MET, ALL SAFETY MEASURES INITIATED. SIDE RAILS X2, BED LOW AND LOCKED, CALL LIGHT WITHIN REACH.
[2016-05-29 08:00] VITALS: BP 123/52
[2016-05-29] MEDS: ATORVASTATIN 40 MG TABLET PO SCH (08:09)
[2016-05-29] MEDS: BENAZEPRIL HCL 20 MG TABLET PO SCH (08:10)
[2016-05-29] MEDS: ASPIRIN 81 MG TAB.CHEW PO SCH (08:10)
[2016-05-29] MEDS: PANTOPRAZOLE 40 MG TABLET.DR PO SCH (08:10)
[2016-05-29 16:00] VITALS: BP 133/56
--- NOTE | 2016-05-29 18:34 | NUR ---
RN MS NOTES PT STABLE WITH NO ACUTE CHANGES NOTED, ALL DUE MEDS GIVEN, ALL NEEDS MET, WILL ENDORSE TO PM NURSE.
--- NOTE | 2016-05-29 19:45 | NUR ---
RN NOTES PT ASLEEP ON BED RESP EVEN AND UNLABORED. DENIES PAIN. AOX 3 ABLE TO MAKE KNOWN NEEDS. ON O2 2LPM VIA NC. SATING 96%. SR HR 84 ON TELE MONITOR. IV LINE ON MARIA E MIDLINE AND LAC G 18 INTACT ANS PATENT. NO INFILTRATION SHOWS. KEPT PT CLEAN AND DRY CALL LIGHT KEPT WITHIN EASY REACH. WILL CONTINUE TO MONITOR.
[2016-05-29 20:00] VITALS: BP 142/57
[2016-05-29] MEDS: INSULIN DETEMIR 100 UNIT/ML CARTRIDGE SQ SCH (21:26)
[2016-05-30 04:00] VITALS: BP 158/59
[2016-05-30] MEDS: PANTOPRAZOLE 40 MG TABLET.DR PO SCH (06:40)
[2016-05-30] MEDS: BLOOD SUGAR DIAGNOSTIC 1 EACH STRIP IN SCH ×4 (06:40→21:33)
[2016-05-30 06:41] LABS: BASOPHILS % (AUTO) 0.2 % (0.0-2.0); EOSINOPHILS # (AUTO) 0.1 /CMM (0.0-0.7); HEMATOCRIT 30 % (33-45); HEMOGLOBIN 10.1 g/dL (11.5-14.8); LYMPHOCYTES # (AUTO) 1.1 /CMM (0.8-4.8); LYMPHOCYTES % (AUTO) 20.2 % (20.0-44.0); MEAN CORPUSCULAR HEMOGLOBIN 32 PG (26.0-33.0); MEAN CORPUSCULAR HGB CONC 34 g/dl (31.0-36.0); MEAN CORPUSCULAR VOLUME 94 fL (82-100); MONOCYTES # (AUTO) 0.4 /CMM (0.1-1.30); MONOCYTES % (AUTO) 6.6 % (2.0-12.0); NEUTROPHILS # (AUTO) 3.8 /CMM (1.8-8.9); PLATELET COUNT (AUTO) 182 /CMM (150-450); RDW COEFFICIENT OF VARIATION 14.8 (11.5-15.0); RED BLOOD CELL COUNT(AUTO) 3.21 MIL/uL (4.0-5.2); WHITE BLOOD COUNT (AUTO) 5.4 K/uL (4.3-11.0)
[2016-05-30] MEDS: INSULIN REGULAR, HUMAN 100 UNIT/ML 3 ML VIAL SQ PRN ×4 (06:42→21:36)
[2016-05-30 07:06] LABS: ALBUMIN 2.2 g/dL (3.4-5.0); BILIRUBIN,TOTAL 0.7 mg/dL (0.2-1.0); CALCIUM, SERUM 8.9 mg/dL (8.5-10.1); CREATININE 1.1 mg/dL (0.6-1.3); MAGNESIUM 1.7 mg/dL (1.8-2.4); TOTAL PROTEIN, SERUM 6.5 g/dL (6.4-8.2)
--- NOTE | 2016-05-30 07:10 | NUR ---
RN NOTES ASLEEP WELL ON BED. NO ACUTE RESP DISTRESS. BREATHING EVEN AND UNLABORED. TOLERATED O2 2LPM VIA NC SATING 94% AT THIS TIME. PT REMAINED AOX 3 VERBALIZED NEEDS AND FEELINGS. ALL NEEDS ATTENDED. AFEBRILE. VS CONTROLLED. NO S.S OF HYPO OR HYPERGLYCEMIA SHOWS. CONTINUE TO MONITOR BS INSULIN PER SLIDING SCALE REMAINED EFFECTIVE. KEPT PT CLEAN AND COMFORTABLE. WILL ENDORSED CONTINUITY OF CARE TO AM NURSE,.
[2016-05-30 08:00] VITALS: BP 142/59
[2016-05-30] MEDS: MENTHOL/CETYLPYRD (CEPACOL) 1 LOZ LOZENGE PO PRN ×2 (08:25→17:05)
[2016-05-30] MEDS: ASPIRIN 81 MG TAB.CHEW PO SCH (08:26)
[2016-05-30] MEDS: ATORVASTATIN 40 MG TABLET PO SCH (08:26)
[2016-05-30] MEDS: BENAZEPRIL HCL 20 MG TABLET PO SCH (08:26)
[2016-05-30] MEDS: HEPARIN SODIUM, PORCINE 5000 UNITS/1 ML VIAL SQ SCH (08:36)
--- NOTE | 2016-05-30 09:00 | NUR ---
MS RN NOTE Pt resting in bed, AOx4. VSS. Platelets 183, gave heparin. Gave lozenge for sore throat. Pt has not had BM since being in hospital but denies discomfort, refused PRN BM meds. Pt coughing, requested RT to give PRN neb treatment. Pt had originally requested pureed diet but now wants to go back to CCHO diet. Per previous speech eval, pt does not need to be on pureed diet. Changed diet to CCHO. MARIA E midline. All needs met. Will cont to monitor.
[2016-05-30] MEDS ORDERED: MAGNESIUM OXIDE 400 MG TABLET PO ONE (11:30)
[2016-05-30] MEDS ORDERED: IV SET PRIMARY PUMP SET 1 EA INFUS.SET MC ONE (13:35)
[2016-05-30] MEDS: Magnesium 1GM/D5W 100ML PREMIX 100 ML IV SCH ×2 (13:39→14:52)
[2016-05-30 16:00] VITALS: BP 152/52
--- NOTE | 2016-05-30 17:43 | NUR ---
MS RN NOTE PRN neb x1 for cough, aware of coughing. Lozenge for sore throat. Removed midline d/t leaking when flushing w/ NS, left AC IV still patent. 2 bumps IV Mg given with oral Mag ox, ok'd by MD to give both IV and PO. O2 94% on RA, removed NC. No other changes, will cont to monitor.
--- NOTE | 2016-05-30 19:30 | NUR ---
MS RN INITIAL NOTE RECEIVED REPORT FROM DARIO SAMUELS. PT IN BED, ASLEEP BUT AROUSABLE. LUNG SOUNDS DIMINISHED. BOWEL SOUNDS PRESENT. IV PATENT AND INTACT. PULSES PRESENT IN ALL EXTREMITIES. BED IN LOW LOCKED POSITION. CALL LIGHT WITHIN REACH. WILL CONTINUE TO MONITOR.
[2016-05-30 20:00] VITALS: BP 159/61
[2016-05-30] MEDS: INSULIN DETEMIR 100 UNIT/ML CARTRIDGE SQ SCH (21:34)
[2016-05-31 04:00] VITALS: BP 162/65
[2016-05-31] MEDS: MENTHOL/CETYLPYRD (CEPACOL) 1 LOZ LOZENGE PO PRN ×3 (05:42→21:56)
[2016-05-31] MEDS: BLOOD SUGAR DIAGNOSTIC 1 EACH STRIP IN SCH ×4 (06:41→21:59)
[2016-05-31] MEDS: INSULIN REGULAR, HUMAN 100 UNIT/ML 3 ML VIAL SQ PRN ×4 (06:41→21:50)
[2016-05-31] MEDS: PANTOPRAZOLE 40 MG TABLET.DR PO SCH (06:42)
--- NOTE | 2016-05-31 07:30 | NUR ---
RN MS NOTES PT IN BED, AWAKE, ALERT AND ORIENTED, NO COMPLAINT OF PAIN OR ANY DISCOMFORT, RESPIRATIONS NORMAL, CALL LIGHT WITHIN REACH, NEEDS ATTENDED.
[2016-05-31] MEDS: BENAZEPRIL HCL 20 MG TABLET PO SCH (08:42)
[2016-05-31] MEDS: ASPIRIN 81 MG TAB.CHEW PO SCH (08:42)
[2016-05-31] MEDS: ATORVASTATIN 40 MG TABLET PO SCH (08:42)
--- NOTE | 2016-05-31 09:00 | NUR ---
RN MS NOTES PT STILL NO BM, REFUSING PRN BM MEDS, NO COMPLAINT OF ABDOMINAL DISCOMFORT, EXPLAINED RISKS AND BENEFITS, STILL REFUSED.
[2016-05-31 09:20] LABS: BASOPHILS % (AUTO) 0.3 % (0.0-2.0); EOSINOPHILS # (AUTO) 0.1 /CMM (0.0-0.7); EOSINOPHILS % (AUTO) 1.7 % (0.0-6.0); HEMATOCRIT 30 % (33-45); LYMPHOCYTES # (AUTO) 1.3 /CMM (0.8-4.8); LYMPHOCYTES % (AUTO) 20.1 % (20.0-44.0); MEAN CORPUSCULAR HEMOGLOBIN 32 PG (26.0-33.0); MEAN CORPUSCULAR HGB CONC 34 g/dl (31.0-36.0); MEAN CORPUSCULAR VOLUME 94 fL (82-100); MONOCYTES # (AUTO) 0.4 /CMM (0.1-1.30); MONOCYTES % (AUTO) 6.6 % (2.0-12.0); NEUTROPHILS # (AUTO) 4.4 /CMM (1.8-8.9); NEUTROPHILS % (AUTO) 71.3 % (43.0-81.0); PLATELET COUNT (AUTO) 226 /CMM (150-450); RDW COEFFICIENT OF VARIATION 14.7 (11.5-15.0); RED BLOOD CELL COUNT(AUTO) 3.15 MIL/uL (4.0-5.2); WHITE BLOOD COUNT (AUTO) 6.2 K/uL (4.3-11.0)
--- NOTE | 2016-05-31 12:00 | NUR ---
RN MS NOTES PT IN BED, AWAKE, ALERT AND ORIENTED, NO COMPLAINT OF PAIN OR ANY DISCOMFORT, BREATHING PATTERN NORMAL, BLOOD SUGAR CHECKED, INSULIN GIVEN PER SLIDING SCALE ORDERED, CALL LIGHT WITHIN REACH, ASSISTED WITH NEEDS.
[2016-05-31 16:00] VITALS: BP 140/56
[2016-05-31] MEDS ORDERED: AMLODIPINE BESYLATE 5 MG TABLET PO ONE (16:00)
--- NOTE | 2016-05-31 18:13 | NUR ---
RN MS NOTES PT IN BED, AWAKE, ALERT AND ORIENTED, NO COMPLAINT OF PAIN OR ANY DISCOMFORT, TOLERATING CURRENT DIET WELL, BLOOD SUGAR CHECKED, INSULIN GIVEN PER SLIDING SCALE ORDERED, CALL LIGHT WITHIN REACH, ALL NEEDS ATTENDED.
--- NOTE | 2016-05-31 19:01 | NUR ---
RN MS NOTES PT IN BED, AWAKE, ALERT AND ORIENTED, NO COMPLAINT OF PAIN OR ANY DISCOMFORT, BREATHING PATTERN NORMAL, OFFERED MILK OF MAGNESIA, PT REFUSED, STATED IT WILL UPSET HER STOMACH, NO OTHER COMPLAINT NOTED, PLAN OF CARE DISCUSSED, VERBALIZED UNDERSTANDING.
[2016-05-31] MEDS: INSULIN DETEMIR 100 UNIT/ML CARTRIDGE SQ SCH (21:51)
--- NOTE | 2016-06-01 05:36 | NUR ---
PAPER CUP MACHINE OPERATOR - REC'D PT. IN BED W/EYES CLOSED. EASILY AROUSABLE, PT.IS A&O X 3, GOT UP & STARTED WATCHING TV, CALL CEE IN HAND. PT. WAS ADM. AMBIEN 5 MG IVP, TO HELP ASSIST W/ SLEEP. A COMPLETE BEDBATH WAS ADM. AT 2 AM. PT. WENT RIGHT BACK ASLEEP AGAIN. PT.IS ON R/A & SATTING >96%. PT'S BS WAS #279 AT 22:00. PT.COVERED W/REG.INSULIN & 10U OF LEVIMIR WAS ADM. ALL PULSES PALPABLE X 4 EXT. NO S/S OF DISTRESS OR DISCOMFORT. CONNT. POC.
[2016-06-01 07:18] LABS: BASOPHILS % (AUTO) 0.3 % (0.0-2.0); EOSINOPHILS # (AUTO) 0.1 /CMM (0.0-0.7); EOSINOPHILS % (AUTO) 1.5 % (0.0-6.0); HEMATOCRIT 31 % (33-45); HEMOGLOBIN 10.2 g/dL (11.5-14.8); LYMPHOCYTES # (AUTO) 1.3 /CMM (0.8-4.8); LYMPHOCYTES % (AUTO) 21.3 % (20.0-44.0); MEAN CORPUSCULAR HEMOGLOBIN 31 PG (26.0-33.0); MEAN CORPUSCULAR HGB CONC 33 g/dl (31.0-36.0); MEAN CORPUSCULAR VOLUME 95 fL (82-100); MONOCYTES # (AUTO) 0.5 /CMM (0.1-1.30); MONOCYTES % (AUTO) 7.7 % (2.0-12.0); NEUTROPHILS # (AUTO) 4.3 /CMM (1.8-8.9); NEUTROPHILS % (AUTO) 69.2 % (43.0-81.0); PLATELET COUNT (AUTO) 227 /CMM (150-450); RDW COEFFICIENT OF VARIATION 14.6 (11.5-15.0); RED BLOOD CELL COUNT(AUTO) 3.25 MIL/uL (4.0-5.2); WHITE BLOOD COUNT (AUTO) 6.3 K/uL (4.3-11.0)
[2016-06-01 07:22] LABS: CALCIUM, SERUM 8.8 mg/dL (8.5-10.1); CREATININE 1.1 mg/dL (0.6-1.3); POTASSIUM 4.4 mmol/L (3.5-5.1)
--- NOTE | 2016-06-01 07:30 | NUR ---
MS RN NOTES RECEIVED PATIENT AWAKE IN BED, AOX3. BREATHING EVEN AND NON LABORED, DENIES ANY PAIN AT THIS TIME. CALL LIGHT WITHIN REACH, BED IN LOW POSITION FOR SAFETY MEASURES. WILL CONTINUE TO MONITOR.
[2016-06-01 08:00] VITALS: BP_SYST 159; BP_DIAS 59; BP_DIAS 60
[2016-06-01] MEDS: ATORVASTATIN 40 MG TABLET PO SCH (08:49)
[2016-06-01] MEDS: ASPIRIN 81 MG TAB.CHEW PO SCH (08:49)
[2016-06-01] MEDS: PANTOPRAZOLE 40 MG TABLET.DR PO SCH (08:49)
[2016-06-01] MEDS: BLOOD SUGAR DIAGNOSTIC 1 EACH STRIP IN SCH ×2 (08:56→11:33)
[2016-06-01] MEDS ORDERED: BENAZEPRIL HCL 20 MG TABLET PO SCH (09:00)
[2016-06-01] MEDS: INSULIN REGULAR, HUMAN 100 UNIT/ML 3 ML VIAL SQ PRN ×2 (09:00→11:36)
[2016-06-01 12:00] VITALS: BP 157/57
[2016-06-01 16:00] VITALS: BP 149/63
--- NOTE | 2016-06-01 16:00 | NUR ---
MS RN NOTES S/B DR. YE WITH ORDERS MADE AND CARRIED OUT. PT FOR DC HOME TODAY WITH HER . ORDERS CARRIED OUT
--- NOTE | 2016-06-01 17:00 | NUR ---
MS RN NOTES PATIENT OFFERED FLU SHOT BUT SHE REFUSED, PATIENT STATED THAT SHE JUST HAD HER PNEUMONIA VACCINE LAST YEAR. ALL DC INSTRUCTIONS AND MEDICATIONS EXPLAINED AND DISCUSSED TO THE PATIENT AND VERBALIZED UNDERSTANDING. NO BELONGINGS WAS BROUGHT TO THE HOSP. LAC HL REMOVED AND PRESSURE DRESSING APPLIED.
--- NOTE | 2016-06-01 17:30 | NUR ---
MS RN NOTES PT ACCOMPANIED BY AMMY ANGELES TO THE LOBBY VIA WHEELCHAIR. PT IS DISCHARGED IN STABLE CONDITION WITH HER .
== END 2016-06-01 18:00 | disposition home or self-care (01) | DRG 637 ==
LOC: ER 18:02 → ICU 22:18 → TELE1 05-26 21:51 → TELE-TD 05-26 22:01 → TELE1 05-27 15:56 → MEDSG1 05-29 11:19
PROVIDERS: ADMIT Nurse Practitioner Acute Care; ATTEND Nurse Practitioner Acute Care
PROC: 05H633Z Insertion of Infusion Device into Left Subclavian Vein, Percutaneous Approach (ICD-10-PCS; principal; 2016-05-23)
DX: E11.00 Type 2 diabetes mellitus with hyperosmolarity without nonketotic hyperglycemic-hyperosmolar coma (NKHHC) (principal); N17.0 Acute kidney failure with tubular necrosis; G93.41 Metabolic encephalopathy; J96.01 Acute respiratory failure with hypoxia; E44.1 Mild protein-calorie malnutrition; E87.1 Hypo-osmolality and hyponatremia; E87.2 Acidosis; B37.49 Other urogenital candidiasis; E87.5 Hyperkalemia; I12.9 Hypertensive chronic kidney disease with stage 1 through stage 4 chronic kidney disease, or unspecified chronic kidney disease; E78.5 Hyperlipidemia, unspecified; E11.65 Type 2 diabetes mellitus with hyperglycemia; E86.0 Dehydration; J01.90 Acute sinusitis, unspecified; N18.9 Chronic kidney disease, unspecified; R74.0 Nonspecific elevation of levels of transaminase and lactic acid dehydrogenase [LDH]; E66.9 Obesity, unspecified; R56.9 Unspecified convulsions; D69.6 Thrombocytopenia, unspecified; E11.22 Type 2 diabetes mellitus with diabetic chronic kidney disease
CPT/HCPCS: 36415; 36600; 70450-TC; 71010-TC; 80048-TC; 80053-TC; 80061-TC; 80076-TC; 81000-TC; 82140-TC; 82533; 82550-TC; 82553-TC; 82728-TC; 82962-TC; 83605-TC; 83615-TC; 83735-TC; 83880; 84100-TC; 84145; 84443-TC; 84484-TC; 85025-TC; 85396; 85730-TC; 86632; 86694; 86738; 86788; 86789; 87040-TC; 87081-TC; 87086-TC; 89051-TC; 93307-TC; 93970-TC; 94799-TC; 95819-TC; 97001-TC; 97110-TC; 97116-TC; 97530-TC; A4216; A4606; J0133; J0360; J0456; J0696; J1450; J1630; J1644; J1815; J1953; J2060; J3370; J3475; J3490; J7030; J7060; Z7610

== ENCOUNTER 2018-03-10 14:18 | Inpatient (IN) | payer MEDICARE ==
[~2018-03-10] VITALS: Ht 170.2 cm; Wt 99.8 kg
[~2018-03-10 14:18] MED LIST: ASPI-1169 PO; ATOR40TA PO; BENA20TA9 PO; EXEN2PEN SQ; GLIP10TA11 PO; INSU100I14 SQ; INSU100I19 SQ; PIOG15TA8 PO
--- NOTE | 2018-03-10 14:24 | NUR ---
DR HAYNES AT BEDSIDE FOR EVAL.
--- NOTE | 2018-03-10 14:25 | NUR ---
BG [id number]. DR HAYNES AWARE.
[2018-03-10] MEDS ORDERED: IV NS 0.9% 1,000 ML BAG IV ONE (14:30)
[2018-03-10] MEDS ORDERED: FERR325T23 PO (14:39)
[2018-03-10] MEDS ORDERED: AMLO5TAB7 PO (14:39)
[2018-03-10] MEDS ORDERED: CHOL100044 PO (14:39)
[2018-03-10] MEDS ORDERED: MULT-1168 PO (14:39)
[2018-03-10 14:40] LABS: BASOPHILS % (AUTO) 0.7 % (0.0-2.0); HEMATOCRIT 38 % (33-45); HEMOGLOBIN 12.4 g/dL (11.5-14.8); LYMPHOCYTES # (AUTO) 1.3 /CMM (0.8-4.8); MEAN CORPUSCULAR HGB CONC 33 g/dl (31.0-36.0); MEAN CORPUSCULAR VOLUME 100 fL (82-100); MONOCYTES # (AUTO) 0.3 /CMM (0.1-1.30); MONOCYTES % (AUTO) 4.1 % (2.0-12.0); NEUTROPHILS # (AUTO) 5.6 /CMM (1.8-8.9); NEUTROPHILS % (AUTO) 76.2 % (43.0-81.0); PLATELET COUNT (AUTO) 160 /CMM (150-450); RED BLOOD CELL COUNT(AUTO) 3.83 MIL/uL (4.0-5.2); WHITE BLOOD COUNT (AUTO) 7.3 K/uL (4.3-11.0)
[2018-03-10 15:01] LABS: ALANINE AMINOTRANSFERASE 31 U/L (12-78); ALBUMIN 3.4 g/dL (3.4-5.0); ALKALINE PHOSPHATASE 128 U/L (46-116); ASPARTATE AMINOTRANSFERASE 22 U/L (15-37); BILIRUBIN,DIRECT 0.1 mg/dL (0.0-0.2); CALCIUM, SERUM 8.8 mg/dL (8.5-10.1); CARBON DIOXIDE 24 mmol/L (21-32); CHLORIDE 94 mmol/L (98-107); CREATININE 1.5 mg/dL (0.6-1.3); POTASSIUM 4.6 mmol/L (3.5-5.1); SODIUM SERUM 130 mmol/L (136-145); TOTAL PROTEIN, SERUM 7.7 g/dL (6.4-8.2); UREA NITROGEN, BLOOD 27 mg/dL (7-18)
[2018-03-10 15:03] LABS: GLUCOSE 573 mg/dL (74-106)
[2018-03-10] MEDS ORDERED: INSULIN REGULAR, HUMAN 100 UNIT/ML 10 ML VIAL SQ ONE (15:30)
[2018-03-10] MEDS ORDERED: INSULIN REGULAR, HUMAN 100 UNIT/ML 10 ML VIAL ONE (15:32)
[2018-03-10 15:37] LABS: APPEARANCE,URINE Clear (CLEAR); BILIRUBIN,URINE Negative (NEGATIVE); BLOOD, URINE Small Ery/uL (NEGATIVE); COLOR,URINE Other (YELLOW); KETONES,URINE 15 (NEGATIVE); LEUKOCYTE ESTERASE ,URINE Trace (NEGATIVE); NITRITE, URINE Positive (NEGATIVE); PH,URINE 7.5 (5.0-8.0); PROTEIN,URINE 100 mg/dl (NEGATIVE); UGLUCOSE >=1000 mg/dL (NEGATIVE); UROBILINOGEN,URINE 0.2 EU/dL (0.2)
--- NOTE | 2018-03-10 15:38 | NUR ---
PT TO RADIOLOGY FOR HEAD CT SSCAN VIA [facility].
[2018-03-10 16:07] LABS: BACTERIA,URINE Moderate /HPF (None Seen); SQUAMOUS EPITHELIAL CELL,UR Few /HPF (None Seen)
[2018-03-10] MEDS ORDERED: IV NS 0.9% 1,000 ML IV ONE (16:30)
--- NOTE | 2018-03-10 16:48 | NUR ---
Linda solano in ED - 03/10/18 at 1649 by CINTHIA REPORT GIVEN TO CRYSTAL PT AWAITING TRANSFER TO [facility].
--- NOTE | 2018-03-10 16:48 | NUR ---
REPORT GIVEN TO TANIKA SAMUELS. PT AWAITING TRANSFER TO FLOOR.
[2018-03-10] MEDS ORDERED: DEXTROSE 50%-WATER 50 ML DISP.SYRIN IV PRN (17:30)
[2018-03-10] MEDS ORDERED: INSULIN ASPART/LISPRO 100 UNIT/ML CARTRIDGE SQ SCH (17:30)
[2018-03-10 18:00] VITALS: BP 176/88
[2018-03-10] MEDS ORDERED: CEFTRIAXONE 1 G in IV D5W 50 ML IV SCH (18:00)
--- NOTE | 2018-03-10 18:00 | NUR ---
SET UP MECHANIC COIL WINDING MACHINESDEBURRING MACHINE OPERATOR NOTES Patient received from ER for Hyperglycemia monitoring via Prizzm @[phone]. Chief complaint was slurred speech, altered mental status per daughter. Stroke screening done in ER: Ruled out stroke per Lokesh RN. Alert and oriented x1, verbally responsive but unable to follow commands. No SOB/labored breathing noted. Not in any type of distress. Skin body assessment done. Awaiting for Novolog and Rocephin to be delivered by Pharmacy to be administered to patient. Obtained history from family members. CXR done. MRSA swab done. TELE: Sinus rhythm 89. Safety measures in place. Bed in locked and lowest position with bed alarm on and call light within reach. Will continue to monitor and assess patient. 166/87 81 18 99.6 95% RA
[2018-03-10] MEDS: IV NS 0.9% 1,000 ML IV PRN (18:28)
--- NOTE | 2018-03-10 18:40 | NUR ---
PRESSING MACHINE TENDER NOTES Patient is confused and trying to get out of bed. Pulled out her IV access. Cath tip intact. Will attempt to insert IV access Addendum: 03/10/18 at 1954 by BETINA JOSE RN Attempted to insert IV x3 but unsuccessful. Accuvein is being used by another unit. Endorsed to oncoming shift nurse
--- NOTE | 2018-03-10 19:00 | NUR ---
MUFFLER MECHANIC NOTES Novolog and Rocephin has not been delivered yet by the pharmacy. Addendum: 03/10/18 at 3 by BETINA JOSE RN No meds delivery as of yet. Meds have been verified but pharmacy is closed
--- NOTE | 2018-03-10 19:45 | NUR ---
TELERN PATIENT, RESTLESS, COMBATIVE, TRYING TO GET OOB. DISORIENTED. NO ACCESS. FAMILY AT BEDSIDE. HFR. SR TO ST ON THE MONITOR. TO CONTINUE.
[2018-03-10 20:00] VITALS: BP 164/71
--- NOTE | 2018-03-10 20:00 | NUR ---
TELERN REMAINS COMBATIVE, URGE TO USE RESTROOM. BSC PROVIDED, MODERATE ASSIST 2 PERSON, HFR. REALITY ORIENTATION, INSISTED TO GO RESTROOM. HAVE PATIENT SIT ON BSC FOR AWHILE. STARTED TO CALM DOWN, STAYED WITH PATIENT FOR NOW. INFORMED CN NEED FOR SITTER, FAMILY REFUSED SOFT WRIST RESTRAINTS.REQUESTED FOR SITTER. VOIDED AFTER FEW MINUTES, ASSISTED BACK TO BED. CONTINUED TO BE CALM AND QUIET. NO SOB. FELL ASLEEP.
[2018-03-10] MEDS ORDERED: INSULIN LISPRO/ASPART 100 UNIT/ML CARTRIDGE SQ ONE (20:41)
--- NOTE | 2018-03-10 21:00 | NUR ---
TELERN V/S TAKEN PATIENT AWAKENED BECAME COMBATIVE AND RESTLESS. INSISTED TO GET OUT OF BED. REALITY ORIENTATION, SAFETY PRECAUTIONS EMPHASIZED, POOR CONCENTRATION. MOVED TO ROOM 313-1. SITTER AT BEDSIDE.
[2018-03-10] MEDS ORDERED: CEFTRIAXONE 1 G VIAL ONE (21:09)
[2018-03-10] MEDS: BLOOD SUGAR DIAGNOSTIC 1 EACH STRIP IN SCH (21:14)
--- NOTE | 2018-03-10 21:15 | NUR ---
TELERN CN ABLE TO INSERT 24 GAUGE ON LEFT WRIST, ROCEPHINE STARTED. CALM OF THIS TIME. BS Q 4HRS, WAS 366 EARLIER COVERED WITH 20 UNITS OF REGULAR INSULIN PER SLIDING SCALE.
[2018-03-10] MEDS: INSULIN REGULAR, HUMAN 100 UNIT/ML 3 ML VIAL SQ PRN (21:17)
[2018-03-10] MEDS ORDERED: INSULIN GLARGINE, 100 UNIT/ML CARTRIDGE SQ ONE (21:18)
[2018-03-10] MEDS ORDERED: INSULIN DETEMIR 100 UNIT/ML CARTRIDGE SQ SCH (22:00)
--- NOTE | 2018-03-10 23:00 | NUR ---
TELERN RECHECKED BS WAS 357. LANTUS ADMINISTERED. REMAINS COOPERATIVE,
[2018-03-10] MEDS ORDERED: INSULIN GLARGINE, 100 UNIT/ML CARTRIDGE SQ SCH (23:30)
--- NOTE | 2018-03-10 23:45 | NUR ---
TELERN VOMITTED, MODERATE AMOUNT OF UNDIGESTED FOOD. FELT BETTER AFTER VOMITING. WENT BACK TO SLEEP.
[2018-03-11 00:30] VITALS: BP 148/69
--- NOTE | 2018-03-11 00:39 | NUR ---
TELERN V/S MONITORED, LOW GRADE TEMP 99.9. REMAINS SR ON THE MONITOR
[2018-03-11] MEDS: BLOOD SUGAR DIAGNOSTIC 1 EACH STRIP IN SCH ×6 (01:46→21:53)
[2018-03-11] MEDS: INSULIN REGULAR, HUMAN 100 UNIT/ML 3 ML VIAL SQ PRN ×4 (01:47→17:19)
[2018-03-11 04:00] VITALS: BP 127/57
[2018-03-11] MEDS: IV NS 0.9% 1,000 ML IV PRN ×2 (04:27→16:14)
--- NOTE | 2018-03-11 06:00 | NUR ---
TELERN ACCUCHECK WAS 138. PATIENT MORE ALERT THIS TIME, STATED CAN NOT REMEMBER WHAT HAPPENED TO HER LAST NIGHT. PATIENT MOVED TO ROOM 325 WITH SITTER.
--- NOTE | 2018-03-11 07:00 | NUR ---
TELERN REMAINS SR ON THE MONITOR, PATIENT MORE ALERT AND COHERENT. ABLE TO SPEAK CLEAR SENTENCES. SITTER AT BEDSIDE. SAFETY PRECAUTIONS EMPHASIZED, WELL UNDERSTOOD. EAGER TO SEE HER FAMILY. ENDORSED TO INCOMING RN FOR CONTINUITY OF CARE.
[2018-03-11 07:02] LABS: BASOPHILS % (AUTO) 0.3 % (0.0-2.0); EOSINOPHILS % (AUTO) 0.3 % (0.0-6.0); HEMATOCRIT 36 % (33-45); HEMOGLOBIN 11.8 g/dL (11.5-14.8); LYMPHOCYTES # (AUTO) 1.8 /CMM (0.8-4.8); LYMPHOCYTES % (AUTO) 19.4 % (20.0-44.0); MEAN CORPUSCULAR HGB CONC 33 g/dl (31.0-36.0); MEAN CORPUSCULAR VOLUME 97 fL (82-100); MONOCYTES # (AUTO) 0.6 /CMM (0.1-1.30); PLATELET COUNT (AUTO) 177 /CMM (150-450); RED BLOOD CELL COUNT(AUTO) 3.67 MIL/uL (4.0-5.2); WHITE BLOOD COUNT (AUTO) 9.4 K/uL (4.3-11.0)
--- NOTE | 2018-03-11 07:25 | NUR ---
SHERIFF DEPUTY INITIAL NOTES Report received at bedside. Patient received in bed, sleeping comfortably, easily aroused. Unable to assess orientation at the moment. Let patient rest, verbally responsive. Denies any pain at the moment. No SOB/labored breathing noted. Safety measures in place. IV access on left hand #24G NS @100ml/hr. On one-on-one sitter for safety. Will continue to monitor and assess patient. Call light within reach. TELE: SR 69
[2018-03-11 07:31] LABS: CALCIUM, SERUM 8.3 mg/dL (8.5-10.1); CARBON DIOXIDE 26 mmol/L (21-32); CHLORIDE 106 mmol/L (98-107); CREATININE 1.4 mg/dL (0.6-1.3); GLUCOSE 146 mg/dL (74-106); PHOSPHORUS 1.9 mg/dL (2.5-4.9); POTASSIUM 3.7 mmol/L (3.5-5.1); SODIUM SERUM 142 mmol/L (136-145); UREA NITROGEN, BLOOD 22 mg/dL (7-18)
[2018-03-11 08:00] VITALS: BP 137/71
[2018-03-11] MEDS: PIOGLITAZONE HCL 15 MG TABLET PO SCH (09:12)
[2018-03-11] MEDS: CHOLECALCIFEROL 1,000 UNIT TABLET (VIT D3) PO SCH (09:12)
[2018-03-11] MEDS: ATORVASTATIN 40 MG TABLET PO SCH (09:14)
[2018-03-11] MEDS: ASPIRIN 81 MG TAB.CHEW PO SCH (09:15)
[2018-03-11] MEDS: FERROUS SULFATE (325 MG) 325 MG/TAB TABLET PO SCH (09:15)
[2018-03-11] MEDS: AMLODIPINE BESYLATE 5 MG TABLET PO SCH (09:16)
[2018-03-11] MEDS: BENAZEPRIL HCL 20 MG TABLET PO SCH (09:16)
--- NOTE | 2018-03-11 09:27 | NUR ---
HAND PACKER NOTES Follow up Glipizide with Pharmacy. Will delivery soon. Addendum: 03/11/18 at 1025 by BETINA JOSE RN Given.
[2018-03-11] MEDS: glipiZIDE 10 MG TABLET PO SCH ×2 (10:24→17:05)
[2018-03-11] MEDS ORDERED: K PHOS NEUTRAL 250 MG TABLET PO ONE (11:00)
[2018-03-11 12:00] VITALS: BP 137/56
[2018-03-11] MEDS ORDERED: DEXTROSE 50%-WATER 50 ML DISP.SYRIN IV PRN (14:00)
[2018-03-11] MEDS ORDERED: *INSULIN REGULAR(HUMULIN R)HUM 100 UNIT/ML VIAL SQ PRN (14:00)
[2018-03-11 16:00] VITALS: BP 119/57
[2018-03-11] MEDS ORDERED: BLOOD SUGAR DIAGNOSTIC 1 EACH STRIP IN SCH (17:30)
--- NOTE | 2018-03-11 18:18 | NUR ---
ETHNIC ORIGINS TEACHER CLOSING NOTES Patient remained in bed, intermittently sleeping, easily aroused. Alert and oriented x3, verbally responsive. Ambulatory with assist. Denies any pain. Not in any type of distress. No SOB or labored breathing noted. Afebrile. All due meds given and tolerated. Continue IV fluids therapy, PT eval tomorrow, D/C antibiotic and aspart, and AM labs per Dr. Garcia. Change accucheck from Q4H to ACHS. Kept patient clean and dry. All needs provided and met. Patient refused to eat dinner. Called Marni (Daughter [phone]) to bring some sandwich that patient feels like eeating at the moment - no answer. Waiting for call back from daughter. Safety measures in place. Bed in locked and lowest position with call light within reach. Will endorse to oncoming shift nurse. TELE: Sinus Rhythm 73 Addendum: 03/11/18 at 1851 by BETINA JOSE RN Marni called back and confirmed that she can bring a sandwich requested by patient.
--- NOTE | 2018-03-11 19:30 | NUR ---
RN NOTE; RECEIVED PT SITTING IN BED HAVING A SANDWICH WITH THE FAMILY AT THE BED SIDE. BREATHING EVENLY. NO SOB. NAD. SKIN WARM AND DRY. NO S.S OF HYPO OR HYPERGLYCEMIA NOTED AT THIS TIME. SR ON TELE MONITOR . NEEDS ATTENDED. FALL PREVENTION MEASURES WERE REVIEWED WITH THE PT. BED LOW LOCKED. CALL LIGHT WITHIN REACH, WILL CONT TO MONITOR
[2018-03-11 20:00] VITALS: BP 134/56
--- NOTE | 2018-03-11 23:52 | NUR ---
PT WITH C/O STOMACH UPSET AND DYSPHAGIA REQUESTING PEPPER MINT OR TOMS. CALLED DR OSMAN AND RELAYED THE PT'S DISCOMFORT TO THE DR W/ A NEW ORDER FOR MAALOX . GIVEN ORDERED. WILL CONT TO MONITOR,
[2018-03-12] VITALS: BP_SYST 142; BP_SYST 145; BP_DIAS 65
[2018-03-12] MEDS ORDERED: MAG HYDROX/AL HYDROX/SIMETH 30 ML UDC PO PRN
[2018-03-12 04:00] VITALS: BP 146/69
[2018-03-12] MEDS: INSULIN REGULAR, HUMAN 100 UNIT/ML 3 ML VIAL SQ PRN ×2 (06:44→11:53)
[2018-03-12 06:47] LABS: BASOPHILS % (AUTO) 0.4 % (0.0-2.0); HEMATOCRIT 35 % (33-45); HEMOGLOBIN 11.3 g/dL (11.5-14.8); LYMPHOCYTES # (AUTO) 1.3 /CMM (0.8-4.8); LYMPHOCYTES % (AUTO) 22.5 % (20.0-44.0); MEAN CORPUSCULAR HGB CONC 33 g/dl (31.0-36.0); MEAN CORPUSCULAR VOLUME 98 fL (82-100); MONOCYTES # (AUTO) 0.3 /CMM (0.1-1.30); MONOCYTES % (AUTO) 4.6 % (2.0-12.0); NEUTROPHILS % (AUTO) 70.5 % (43.0-81.0); PLATELET COUNT (AUTO) 143 /CMM (150-450); RED BLOOD CELL COUNT(AUTO) 3.51 MIL/uL (4.0-5.2); WHITE BLOOD COUNT (AUTO) 5.7 K/uL (4.3-11.0)
--- NOTE | 2018-03-12 06:51 | NUR ---
PT IN BED SLEEPING. AROUSES EASILY. BREATHING EVENLY. NO SOB. NO ACUTE EVENT DURING THE NIGHT. REMAINED SR ON TELE MONITOR W/ NO S/S OR C/O DISCOMFORT . NO S/S OF HYPO OR HYPERGLYCEMIA. NEEDS ATTENDED. CALL LIGHT WITHIN REACH, WILL CONT TO MONITOR AND WILL ENDORSE TO AM SHIFT FOR GE.
--- NOTE | 2018-03-12 07:05 | NUR ---
SHOE REPAIRER INITIAL NOTES Report received at bedside. Patient received in bed, sleeping comfortably, easily aroused, verbally responsive. Denies any pain at the moment. No SOB/labored breathing noted. Safety measures in place. Will continue to monitor and assess patient. Call light within reach. TELE: SR 70
[2018-03-12 07:10] LABS: CARBON DIOXIDE 22 mmol/L (21-32); CHLORIDE 104 mmol/L (98-107); CREATININE 1.6 mg/dL (0.6-1.3); GLUCOSE 296 mg/dL (74-106); PHOSPHORUS 3.2 mg/dL (2.5-4.9); POTASSIUM 3.6 mmol/L (3.5-5.1); SODIUM SERUM 138 mmol/L (136-145); UREA NITROGEN, BLOOD 29 mg/dL (7-18)
[2018-03-12 08:00] VITALS: BP 146/70
[2018-03-12 08:12] VITALS: BP 146/70
[2018-03-12] MEDS: CHOLECALCIFEROL 1,000 UNIT TABLET (VIT D3) PO SCH (08:12)
[2018-03-12] MEDS: BENAZEPRIL HCL 20 MG TABLET PO SCH (08:12)
[2018-03-12] MEDS: AMLODIPINE BESYLATE 5 MG TABLET PO SCH (08:12)
[2018-03-12] MEDS: BLOOD SUGAR DIAGNOSTIC 1 EACH STRIP IN SCH ×2 (08:12→11:51)
[2018-03-12] MEDS: glipiZIDE 10 MG TABLET PO SCH (08:12)
[2018-03-12] MEDS: PIOGLITAZONE HCL 15 MG TABLET PO SCH (08:12)
[2018-03-12] MEDS: ATORVASTATIN 40 MG TABLET PO SCH (08:12)
[2018-03-12] MEDS: ASPIRIN 81 MG TAB.CHEW PO SCH (08:12)
[2018-03-12] MEDS: FERROUS SULFATE (325 MG) 325 MG/TAB TABLET PO SCH (08:12)
--- NOTE | 2018-03-12 10:08 | NUR ---
CADDY PACKER NOTES PT EVAL done.
--- NOTE | 2018-03-12 11:45 | NUR ---
MS RN NOTES MD at bedside to assess patient. Patient is cleared for discharge
[2018-03-12] MEDS ORDERED: FLUC200T8 PO (12:43)
--- NOTE | 2018-03-12 14:20 | NUR ---
MS SAMUELSSTERILIZATION SPECIALIST NOTES Patient was cleared to discharge home by MD. Patient alert and oriented x4, verbally responsive. Discharge instructions provided to patient and family members with emphasis on glucose monitoring, med compliance and importance of doctors appointments: verbalized understanding. Discharge papers provided and signed. Belongings form signs. Belongings returned to patient including contact lenses. IV access removed with cath tip intact and no bleeding noted. Prescription handed to daughter (Marni). Assisted to change clothes. All anticipated needs provided and met. All due meds given and tolerated. Denies any pain. No SOB/labored breathing noted. Not in any type of distress. Patient was excited to go home[facility] [phone] 18 98.2 97% RA Addendum: 03/12/18 at 1432 by BETINA JOSE RN ID band removed.
== END 2018-03-12 14:30 | disposition home or self-care (01) | DRG 637 ==
LOC: ER 14:20 → TELE 17:04 → MED 03-12 10:15
PROVIDERS: ADMIT Nurse Practitioner Acute Care
DX: E11.65 Type 2 diabetes mellitus with hyperglycemia (principal); N17.0 Acute kidney failure with tubular necrosis; N39.0 Urinary tract infection, site not specified; E87.1 Hypo-osmolality and hyponatremia; G93.40 Encephalopathy, unspecified; E78.5 Hyperlipidemia, unspecified; E86.0 Dehydration; I25.10 Atherosclerotic heart disease of native coronary artery without angina pectoris; Z88.0 Allergy status to penicillin; Z79.4 Long term (current) use of insulin; B37.3 Candidiasis of vulva and vagina; B96.1 Klebsiella pneumoniae [K. pneumoniae] as the cause of diseases classified elsewhere; I10 Essential (primary) hypertension; E83.39 Other disorders of phosphorus metabolism
CPT/HCPCS: 36415; 70450-TC; 71045-TC; 80048-TC; 80076-TC; 81000-TC; 82010-TC; 82962-TC; 83735-TC; 84100-TC; 84484-TC; 85025-TC; 87040-TC; 87081-TC; 87086-TC; 87186-TC; 92521; 92526; A4606; A6403; G0378; J0696; J1815; J7030; J7060; Z7610

== ENCOUNTER 2022-05-24 18:13 | Inpatient (IN) | payer MEDICARE ==
[~2022-05-24] VITALS: Ht 160 cm; Wt 103.4 kg
[~2022-05-24 18:13] MED LIST changes: +AMLO-212 PO; +CHOL100044 PO; -EXEN2PEN SQ; +FERR325T23 PO; +FLUC200T8 PO; +MULT-1168 PO
--- NOTE | 2022-05-24 19:45 | NUR ---
COMPARATIVE SOCIOLOGY PROFESSOR AT BEDSIDE
--- NOTE | 2022-05-24 19:47 | NUR ---
MRSA AND COVID SWAB DONE, SENT TO LAB
--- NOTE | 2022-05-24 20:16 | NUR ---
SEGREGATOR AT PT'S BEDSIDE
[2022-05-24 21:12] LABS: BASOPHILS % (AUTO) 0.3 % (0.0-2.0); EOSINOPHILS % (AUTO) 1.8 % (0.0-6.0); HEMATOCRIT 30 % (33-45); HEMOGLOBIN 9.7 g/dL (11.5-14.8); LYMPHOCYTES # (AUTO) 1.1 K/uL (0.8-4.8); LYMPHOCYTES % (AUTO) 13.9 % (20.0-44.0); MEAN CORPUSCULAR HGB CONC 32 g/dl (31.0-36.0); MEAN CORPUSCULAR VOLUME 97 fL (82-100); MONOCYTES # (AUTO) 0.2 K/uL (0.1-1.30); NEUTROPHILS # (AUTO) 6.3 K/uL (1.8-8.9); PLATELET COUNT (AUTO) 167 K/uL (150-450); RED BLOOD CELL COUNT(AUTO) 3.11 MIL/uL (4.0-5.2); WHITE BLOOD COUNT (AUTO) 7.7 K/uL (4.3-11.0)
[2022-05-24 21:28] LABS: CALCIUM, SERUM 8.8 mg/dL (8.5-10.1); CARBON DIOXIDE 27 mmol/L (21-32); CHLORIDE 107 mmol/L (98-107); CREATININE 1.8 mg/dL (0.6-1.3); GLUCOSE 204 mg/dL (74-106); POTASSIUM 3.4 mmol/L (3.5-5.1); SODIUM SERUM 143 mmol/L (136-145); UREA NITROGEN, BLOOD 27 mg/dL (7-18)
[2022-05-24] MEDS ORDERED: NTG 50 MG/D5W250 ML BOTTL 250 ML IV PRN (21:30)
--- NOTE | 2022-05-24 21:30 | NUR ---
TROPONIN 84; DR LACHO CHRISTIE AWARE
[2022-05-24 21:33] LABS: ALANINE AMINOTRANSFERASE 21 U/L (12-78); ALKALINE PHOSPHATASE 86 U/L (46-116); ASPARTATE AMINOTRANSFERASE 23 U/L (15-37); BILIRUBIN,DIRECT 0.3 mg/dL (0.0-0.2); BILIRUBIN,TOTAL 1.1 mg/dL (0.2-1.0); TOTAL PROTEIN, SERUM 7.7 g/dL (6.4-8.2)
--- NOTE | 2022-05-24 21:33 | NUR ---
CALLED [facility] PAGED JASON
--- NOTE | 2022-05-24 21:34 | NUR ---
JASON SPEAKING WITH DR MONK
[2022-05-24] MEDS ORDERED: LORAZEPAM INJ 2 MG/ML VIAL ONE (21:58)
[2022-05-24] MEDS ORDERED: ZOLPIDEM TARTRATE 5 MG TABLET PO PRN (22:00)
[2022-05-24] MEDS ORDERED: MAGNESIUM HYDROXIDE 30 ML UDC PO PRN (22:00)
[2022-05-24] MEDS ORDERED: Z GUARD REMEDY 4 OZ OINT TP PRN (22:00)
[2022-05-24] MEDS ORDERED: CLONIDINE HCL 0.1 MG TABLET PO PRN (22:00)
[2022-05-24] MEDS ORDERED: MORPHINE SULFATE INJ 2 MG/ML DISP.SYRIN IV PRN (22:00)
[2022-05-24] MEDS ORDERED: NITROGLYCERIN PACKET 1 GM PACKET TOP ONE (22:00)
[2022-05-24] MEDS ORDERED: MAG HYDROX/AL HYDROX/SIMETH 30 ML UDC PO PRN (22:00)
[2022-05-24] MEDS ORDERED: DEXTROSE 50%-WATER 50 ML DISP.SYRIN IV PRN (22:00)
[2022-05-24] MEDS ORDERED: LORAZEPAM INJ 2 MG/ML VIAL IV ONE (22:00)
[2022-05-24] MEDS ORDERED: INSULIN DETEMIR 100 UNIT/ML CARTRIDGE SQ SCH (22:00)
[2022-05-24] MEDS ORDERED: ONDANSETRON HCL/PF 4 MG/2 ML VIAL IVP PRN (22:00)
[2022-05-24] MEDS ORDERED: hydrALAZINE HCL IV 20 MG VIAL IV PRN (22:00)
[2022-05-24] MEDS ORDERED: ACETAMINOPHEN 325 MG TABLET PO PRN (22:00)
[2022-05-24] MEDS ORDERED: CEFTRIAXONE 1GM BAG (ER ONLY) 50 ML IV ONE (22:30)
[2022-05-24] MEDS ORDERED: DOXYCYCLINE 100 MG in IV D5W 250 ML IV ONE (22:30)
[2022-05-24] MEDS ORDERED: LORAZEPAM INJ 2 MG/ML VIAL IV PRN (22:30)
[2022-05-24] MEDS ORDERED: CEFTRIAXONE 1 G VIAL ONE (22:33)
[2022-05-24] MEDS ORDERED: DOXYCYCLINE 100 MG VIAL ONE (22:33)
--- NOTE | 2022-05-24 23:14 | NUR ---
Linda solano in [facility] - 05/24/22 at 2317 by LSTOOR APA CALLED FOR BLS GOING BACK TO RES PER MIGUEL ETA - BEFORE MIDNIGHT
--- NOTE | 2022-05-24 23:16 | NUR ---
SEEN BY DR GOMEZ AT BEDSIDE
[2022-05-24] MEDS: BLOOD SUGAR DIAGNOSTIC 1 EACH STRIP IN SCH (23:48)
[2022-05-24] MEDS ORDERED: INSULIN REGULAR, HUMAN 100 UNIT/ML 10 ML VIAL ONE (23:49)
[2022-05-25] MEDS: INSULIN REGULAR, HUMAN 100 UNIT/ML 3 ML VIAL SQ PRN ×5 (00:01→17:36)
--- NOTE | 2022-05-25 00:52 | NUR ---
BED 306-1
[2022-05-25] MEDS ORDERED: NITROGLYCERIN PACKET 1 GM PACKET ONE (00:54)
[2022-05-25] MEDS ORDERED: METOPROLOL TARTRATE 50 MG TABLET ONE (00:54)
[2022-05-25] MEDS: BLOOD SUGAR DIAGNOSTIC 1 EACH STRIP IN SCH ×7 (01:00→22:04)
[2022-05-25] MEDS: METOPROLOL TARTRATE 25 MG TABLET PO SCH ×3 (01:01→21:20)
[2022-05-25] MEDS ORDERED: ENOXAPARIN SODIUM 30 MG/0.3 ML DISP.SYRIN ONE (01:02)
[2022-05-25] MEDS ORDERED: FUROSEMIDE 40 MG/4 ML VIAL ONE (01:02)
[2022-05-25] MEDS: ENOXAPARIN SODIUM 30 MG/0.3 ML DISP.SYRIN SQ SCH ×2 (01:11→21:05)
[2022-05-25 01:40] VITALS: BP 169/83
--- NOTE | 2022-05-25 01:40 | NUR ---
REPORT GIVEN TO JOSE SAMUELS FOR GE. PT TRANSFERRED TO 306-1 VIA ACLS PROTOCOL
--- NOTE | 2022-05-25 01:42 | NUR ---
VICE SQUAD POLICE OFFICER OPENING NOTE PT TRANSPORTED TO UNIT VIA GURNEY AT THIS TIME. PT ADMITTED FROM HOME TO TELE FROM ER UNDER DR GOMEZ FOR ADMITTING DX NSTEMI. A/O X4 AND ABLE TO MAKE NEEDS KNOWN. PT ON O2 @ 2LPM, TOLERATING WELL. NOTED WITH SOB AT REST. BREATHING EVEN AND UNLABORED. ON EXTERNAL STEM PROCESSING MACHINE OPERATOR READING SR 66 BPM. IV ACCESS LAC 20G, INTACT AND PATENT. NOTED WITH SKIN INTACT. ORIENTED TO UNIT, STAFF, AND ROOM. PATIENT BELONGINGS ACCOUNTED FOR AND BELONGINGS LIST SIGNED. SAFETY PRECAUTIONS IN PLACE. BED IN LOWEST LOCKED POSITION, HOB ELEVATED, SIDE RAILS UP X2, AND CALL LIGHT AND TABLE WITHIN REACH. ALL NEEDS MET AT THIS TIME.
[2022-05-25 05:09] VITALS: BP 164/66
[2022-05-25 05:49] LABS: BASOPHILS % (AUTO) 0.4 % (0.0-2.0); EOSINOPHILS % (AUTO) 2.3 % (0.0-6.0); HEMATOCRIT 26 % (33-45); HEMOGLOBIN 8.4 g/dL (11.5-14.8); LYMPHOCYTES # (AUTO) 1.4 K/uL (0.8-4.8); LYMPHOCYTES % (AUTO) 18.4 % (20.0-44.0); MEAN CORPUSCULAR HGB CONC 32 g/dl (31.0-36.0); MEAN CORPUSCULAR VOLUME 96 fL (82-100); MONOCYTES # (AUTO) 0.4 K/uL (0.1-1.30); NEUTROPHILS # (AUTO) 5.5 K/uL (1.8-8.9); NEUTROPHILS % (AUTO) 73.9 % (43.0-81.0); PLATELET COUNT (AUTO) 161 K/uL (150-450); WHITE BLOOD COUNT (AUTO) 7.4 K/uL (4.3-11.0)
[2022-05-25 06:01] LABS: CALCIUM, SERUM 8.3 mg/dL (8.5-10.1); CARBON DIOXIDE 28 mmol/L (21-32); CHLORIDE 106 mmol/L (98-107); CREATININE 1.9 mg/dL (0.6-1.3); GLUCOSE 181 mg/dL (74-106); MAGNESIUM 1.8 mg/dL (1.8-2.4); PHOSPHORUS 3.8 mg/dL (2.5-4.9); SODIUM SERUM 140 mmol/L (136-145); UREA NITROGEN, BLOOD 27 mg/dL (7-18)
--- NOTE | 2022-05-25 06:45 | NUR ---
LADLE BUILDER CLOSING NOTE PT RESTING IN BED, VERBALLY RESPONSIVE. A/O X4 AND ABLE TO MAKE NEEDS KNOWN. PT ON O2 @ 2LPM, TOLERATING WELL. NO S/S OF RESPIRATORY DISTRESS. BREATHING EVEN AND UNLABORED. ON EXTERNAL PAGE MAKEUP SYSTEM OPERATOR READING SB 58 BPM. IV ACCESS LAC 20G, INTACT AND PATENT. SAFETY PRECAUTIONS IN PLACE AT ALL TIMES. BED IN LOWEST LOCKED POSITION, HOB ELEVATED, SIDE RAILS UP X2, AND CALL LIGHT AND TABLE WITHIN REACH. ALL NEEDS MET AT THIS TIME AND WILL ENDORSE TO ONCOMING NURSE FOR GE.
[2022-05-25 07:00] VITALS: BP 134/58
--- NOTE | 2022-05-25 07:20 | NUR ---
DIRECTOR STERILE PROCESSING OPENING NOTES RECEIVED PT AWAKE IN BED IN NO ACUTE SIGNS OF DISTRESS. A/O X4. ABLE TO MAKE NEEDS KNOWN, DENIES PAIN OR ANY DISCOMFORTS AT THIS TIME. ON O2 VIA N/C @ 2LPM, TOLERATING WELL, BREATHING EVEN AND UNLABORED. ON TELE-MONITOR WITH READING OF NSR, HR 63 BPM AT THIS TIME, NO C/O CARDIAC DISTRESS VOICED. IV ACCESS LAC #20G, INTACT, PATENT AND FLUSHES WELL. SAFETY MEASURES IN PLACE: BED IN LOWEST LOCKED POSITION, HOB ELEVATED, SIDE RAILS UP X2, CALL LIGHT AND TRAY TABLE WITHIN REACH. WILL CONTINUE TO MONITOR PT ACCORDINGLY.
[2022-05-25] MEDS ORDERED: POTASSIUM CHLORIDE 20 MEQ TAB.PRT.SR PO ONE (07:30)
[2022-05-25] MEDS: ASPIRIN 81 MG TAB.CHEW PO SCH (08:37)
[2022-05-25] MEDS: FUROSEMIDE 40 MG/4 ML VIAL IV SCH ×3 (08:37→21:06)
[2022-05-25] MEDS: ATORVASTATIN 40 MG TABLET PO SCH (08:38)
--- NOTE | 2022-05-25 08:51 | NUR ---
RN NOTES MARKETING DATABASE COORDINATOR DOMINIC ON UNIT AND INFORMED HIM THAT PT IS ON ACCU-CHECK EVERY 2 HRS, HE ORDERED TO CHANGED IT TO ACHS.
[2022-05-25] MEDS ORDERED: BENAZEPRIL HCL 20 MG TABLET PO SCH (09:00)
[2022-05-25] MEDS ORDERED: AMLODIPINE BESYLATE 5 MG TABLET PO SCH (09:00)
[2022-05-25] MEDS: INSULIN ASPART/LISPRO 100 UNIT/ML CARTRIDGE SQ SCH ×3 (09:31→17:38)
[2022-05-25] MEDS: NITROGLYCERIN 30 GM TUBE TP SCH ×2 (09:41→21:03)
[2022-05-25 09:51] LABS: THYROID STIMULATING HORMONE 1.899 uIU/mL (0.358-3.74)
[2022-05-25] MEDS ORDERED: ALLO100T PO (11:49)
[2022-05-25] MEDS ORDERED: CYAN25003 SL (11:49)
[2022-05-25] MEDS ORDERED: BIOT25008 PO (11:49)
[2022-05-25] MEDS ORDERED: FURO40TA5 PO (11:49)
[2022-05-25] MEDS ORDERED: VALS160T29 PO (11:49)
[2022-05-25] MEDS ORDERED: SPIR25TA PO (11:49)
[2022-05-25] MEDS ORDERED: PSYL0.5245 PO (11:49)
[2022-05-25] MEDS ORDERED: TURM500C7 PO (11:49)
[2022-05-25] MEDS ORDERED: TERA5CAP7 PO (11:49)
[2022-05-25] MEDS ORDERED: OMEG1CAP40 PO (11:49)
[2022-05-25 12:00] VITALS: BP 109/52
[2022-05-25] MEDS: hydrALAZINE HCL 50 MG TABLET PO SCH ×2 (12:43→16:35)
[2022-05-25] MEDS ORDERED: POTASSIUM CHLORIDE 20 MEQ TAB.PRT.SR PO SCH (15:00)
[2022-05-25 16:00] VITALS: BP 127/64
--- NOTE | 2022-05-25 16:36 | NUR ---
RN NOTES PT WITH BP OF 127/64 MMHG, SHE REFUSED HER SCHEDULED HYDRALAZINE 50MG TAB THIS AFTERNOON STATED THAT HER BP IS NOT THAT HIGH.
--- NOTE | 2022-05-25 18:45 | NUR ---
BICYCLE II ASSEMBLER CLOSING NOTES PT IN BED AWAKE AND WATCHING TV AT THIS TIME. HOB IS ELEVATED. A/O X4. ABLE TO MAKE NEEDS KNOWN. ON O2 VIA N/C @ 2LPM, TOLERATING WELL, BREATHING EVEN AND UNLABORED. ON TELE-MONITOR WITH CURRENT READING OF NSR, HR 72 BPM, NO C/O CARDIAC DISTRESS VOICED DURING SHIFT. IV ACCESS LAC #20G SL, INTACT, PATENT AND FLUSHES WELL. ALL NEEDS AND CARE ATTENDED WELL. SAFETY MEASURES KEPT IN PLACE: BED IN LOWEST LOCKED POSITION, HOB ELEVATED AT ALL TIMES, SIDE-RAILS UP X2, CALL LIGHT AND TRAY TABLE WITHIN REACH OF PT. WILL ENDORSE GE TO RADIO STATION AUDIO ENGINEER NURSE.
[2022-05-25 20:00] VITALS: BP 142/73
[2022-05-25] MEDS: INSULIN GLARGINE, 100 UNIT/ML CARTRIDGE SQ SCH (22:00)
[2022-05-25] MEDS: DOXAZOSIN MESYLATE (1 MG) 1 MG TABLET PO SCH (22:17)
[2022-05-25] MEDS ORDERED: INSULIN GLARGINE, 100 UNIT/ML CARTRIDGE SQ ONE (23:00)
[2022-05-26] VITALS: BP 139/68
[2022-05-26 04:00] VITALS: BP 158/70
--- NOTE | 2022-05-26 04:43 | NUR ---
CLOSING NOTES: ALERT AND ORIENTATED X4 VERBALIZES HER NEEDS AVVU CHECKS AC AND HS AISHWARYA Addendum: 05/26/22 at 0446 by ABIMAEL CARMONA RN WRONG CLOSING NOTES
--- NOTE | 2022-05-26 04:47 | NUR ---
CLOSING NOTES: ALERT AND ORIENTATED X4 STATES SHE HAS BEEN A DIABETIC FOR 40 YEARS ! AC AND HS BLOOD SUGAR LAST NIGHT BS 138 ON LASIX D/T PLEURAL EFFUSION AND SWOLLEN FEET AND LEGS WEARS A DIAPER @ TIMES WILL REQUISTE TO USE THE BEDSIDE COMMODE LOVENOX ORDERED
[2022-05-26 05:47] LABS: BASOPHILS % (AUTO) 0.5 % (0.0-2.0); EOSINOPHILS % (AUTO) 2.9 % (0.0-6.0); HEMATOCRIT 25 % (33-45); LYMPHOCYTES # (AUTO) 1.3 K/uL (0.8-4.8); MEAN CORPUSCULAR HGB CONC 32 g/dl (31.0-36.0); MEAN CORPUSCULAR VOLUME 97 fL (82-100); MONOCYTES # (AUTO) 0.3 K/uL (0.1-1.30); MONOCYTES % (AUTO) 5.1 % (2.0-12.0); NEUTROPHILS # (AUTO) 4.6 K/uL (1.8-8.9); NEUTROPHILS % (AUTO) 71.5 % (43.0-81.0); PLATELET COUNT (AUTO) 159 K/uL (150-450); RED BLOOD CELL COUNT(AUTO) 2.57 MIL/uL (4.0-5.2); WHITE BLOOD COUNT (AUTO) 6.5 K/uL (4.3-11.0)
[2022-05-26] MEDS: BLOOD SUGAR DIAGNOSTIC 1 EACH STRIP IN SCH ×4 (05:56→22:13)
[2022-05-26 06:09] LABS: ALANINE AMINOTRANSFERASE 16 U/L (12-78); ALBUMIN 2.6 g/dL (3.4-5.0); ALKALINE PHOSPHATASE 59 U/L (46-116); ASPARTATE AMINOTRANSFERASE 16 U/L (15-37); BILIRUBIN,TOTAL 0.4 mg/dL (0.2-1.0); CALCIUM, SERUM 8.5 mg/dL (8.5-10.1); CARBON DIOXIDE 28 mmol/L (21-32); CHLORIDE 110 mmol/L (98-107); CREATININE 2.2 mg/dL (0.6-1.3); GLUCOSE 124 mg/dL (74-106); MAGNESIUM 1.9 mg/dL (1.8-2.4); PHOSPHORUS 3.7 mg/dL (2.5-4.9); POTASSIUM 3.7 mmol/L (3.5-5.1); SODIUM SERUM 144 mmol/L (136-145); TOTAL PROTEIN, SERUM 6.5 g/dL (6.4-8.2); UREA NITROGEN, BLOOD 32 mg/dL (7-18)
[2022-05-26 07:00] VITALS: BP 149/69
--- NOTE | 2022-05-26 07:55 | NUR ---
RN OPENING NOTE RECEIVED PATIENT IN BED AO x 4, ABLE TO RESPONDS PHYSICAL STIMULI. RESPIRATORY EVEN AND UNLABORED IN OXYGEN AT 2 Ls VIA NC. IN NO ACUTE RESPIRATORY DISTRESS OBSERVED. SKIN IS WARM TO TOUCH, KEEP CLEAN/DRY. KEPT ELEVATED HOB FOR ASPIRATION PRECAUTION/ENSURE AIRWAY, ALSO LOWEST BED POSITIONED. BED ALARM IS ON AT ALL THE TIME FOR SAFETY. CALL LIGHT WITHIN REACH, WILL CONTINUE TO MONITOR.
[2022-05-26] MEDS: ATORVASTATIN 40 MG TABLET PO SCH (08:46)
[2022-05-26] MEDS: METOPROLOL TARTRATE 25 MG TABLET PO SCH ×2 (08:46→20:56)
[2022-05-26] MEDS: ASPIRIN 81 MG TAB.CHEW PO SCH (08:46)
[2022-05-26] MEDS: NITROGLYCERIN 30 GM TUBE TP SCH ×2 (08:47→20:56)
[2022-05-26] MEDS: INSULIN ASPART/LISPRO 100 UNIT/ML CARTRIDGE SQ SCH (08:49)
[2022-05-26] MEDS: hydrALAZINE HCL 50 MG TABLET PO SCH ×3 (09:00→17:30)
[2022-05-26] MEDS: AMLODIPINE BESYLATE 5 MG TABLET PO SCH (09:00)
[2022-05-26 12:00] VITALS: BP 126/57
[2022-05-26] MEDS: methylPREDNISolone SOD SUCC 125 MG/2ML VIAL IV SCH ×2 (12:35→17:29)
--- NOTE | 2022-05-26 13:00 | NUR ---
PATIENT HAS NOVOLOG/HUMALOG 12UNTS TID WM ORDER, HOWEVER, BS WAS 103MG/DL AT LUNCH TIME AND INFORMED MD. NEW ORDER D/C 12 UNITS NOVOLOG/HUMALOG, AND SLIDING SCALE WITH MODERATE. NOTED AND CARRY OUT.
[2022-05-26 16:00] VITALS: BP 154/65
[2022-05-26] MEDS: INSULIN REGULAR, HUMAN 100 UNIT/ML 3 ML VIAL SQ PRN ×2 (17:31→22:19)
--- NOTE | 2022-05-26 18:41 | NUR ---
RN CLOSING NOTE PATIENT RESTING IN BED. IN NO ACUTE DISTRESS OBSERVED. RESPIRATORY EVEN AND UNLABORED ON OXYGEN AT 2Ls VIA NC, NO SOB OR DESATURATION NOTED. SKIN IS WARM TO TOUCH KEEP CLEAN/DRY. SPOKE WITH US REGARDING THORACENTESIS, THE PATIENT WILL HOLD BLOOD THINNER TONIGHT. KEPT ELEVATED HOB FOR ENSURE AIRWAY/ASPIRATION PRECAUTION, AND LOWEST BED POSITION. BED ALARM IS ON AT ALL THE TIME FOR SAFETY. CALL LIGHT WITHIN REACH, WILL ENDORSE METHODS EXAMINER.
--- NOTE | 2022-05-26 19:55 | NUR ---
TRACK ANNOUNCER OPENING NOTE PATIENT AWAKE IN BED, ALERT/ORIENTED X 4, PT ABLE TO MAKE NEEDS KNOWN. PATIENT STABLE ON 2 LPM OF O2 VIA NASAL CANNULA, NO S/S OF DISTRESS OR SOB NOTED, BREATHING EVEN AND UNLABORED. PATIENT ON EXTERNAL HEAD DOFFER READING SINUS RHYTHM, HR: 66. IV ACCESS ON LAC #20G INTACT AND SALINE LOCKED. SAFETY MEASURES IN PLACE: CALL LIGHT WITHIN REACH, SIDE RAILS UP X 3, BED LOCKED IN LOWEST POSITION, HOB ELEVATED, BED ALARM ON. WILL CONTINUE TO MONITOR PATIENT
[2022-05-26 20:00] VITALS: BP 156/76
[2022-05-26 20:31] LABS: BILIRUBIN,URINE NEGATIVE (NEGATIVE); COLOR,URINE YELLOW (YELLOW); LEUKOCYTE ESTERASE ,URINE NEGATIVE (NEGATIVE); NITRITE, URINE NEGATIVE (NEGATIVE); PH,URINE 5.5 (5.0-8.0); PROTEIN,URINE 2+ mg/dl (NEGATIVE); UGLUCOSE NEGATIVE (NEGATIVE); UROBILINOGEN,URINE 0.2 EU/dL (0.2)
[2022-05-26 20:35] LABS: CREATININE, URINE 48.7 MG/DL (30.0-125.0)
[2022-05-26] MEDS: ENOXAPARIN SODIUM 30 MG/0.3 ML DISP.SYRIN SQ SCH (20:56)
[2022-05-26 20:59] LABS: BACTERIA,URINE Moderate /HPF (None Seen); RBC,URINE NONE SEEN /HPF (0-2)
[2022-05-26 21:00] LABS: SQUAMOUS EPITHELIAL CELL,UR Moderate /HPF (None Seen); URINE AMORPHOUS URATE Few /HPF (None Seen)
--- NOTE | 2022-05-26 21:10 | NUR ---
BUFFING WHEEL RAKER NOTE LOVENOX HELD PER MD ORDER, PT HAVING THORACENTESIS TOMORROW
[2022-05-26] MEDS: DOXAZOSIN MESYLATE (1 MG) 1 MG TABLET PO SCH (22:12)
[2022-05-26] MEDS: INSULIN GLARGINE, 100 UNIT/ML CARTRIDGE SQ SCH (22:19)
[2022-05-27] VITALS (7 sets, daily range): BP systolic 120–163; BP diastolic 50–68
--- NOTE | 2022-05-27 04:11 | NUR ---
FAGOTER NOTE PATIENT'S BP 163/61, HR: 65. PRN HYDRALAZINE 20 MG IV GIVEN ORDERED FOR SBP > 160. WILL CONTINUE TO MONITOR
[2022-05-27 05:41] LABS: BASOPHILS % (AUTO) 0.1 % (0.0-2.0); HEMATOCRIT 28 % (33-45); LYMPHOCYTES # (AUTO) 0.7 K/uL (0.8-4.8); LYMPHOCYTES % (AUTO) 11.8 % (20.0-44.0); MEAN CORPUSCULAR HGB CONC 33 g/dl (31.0-36.0); MEAN CORPUSCULAR VOLUME 96 fL (82-100); MONOCYTES # (AUTO) 0.1 K/uL (0.1-1.30); MONOCYTES % (AUTO) 1.1 % (2.0-12.0); NEUTROPHILS # (AUTO) 4.8 K/uL (1.8-8.9); PLATELET COUNT (AUTO) 167 K/uL (150-450); RED BLOOD CELL COUNT(AUTO) 2.88 MIL/uL (4.0-5.2); WHITE BLOOD COUNT (AUTO) 5.5 K/uL (4.3-11.0)
[2022-05-27 05:57] LABS: CALCIUM, SERUM 8.8 mg/dL (8.5-10.1); CARBON DIOXIDE 27 mmol/L (21-32); CHLORIDE 105 mmol/L (98-107); GLUCOSE 245 mg/dL (74-106); MAGNESIUM 1.9 mg/dL (1.8-2.4); PHOSPHORUS 3.9 mg/dL (2.5-4.9); POTASSIUM 3.9 mmol/L (3.5-5.1); SODIUM SERUM 140 mmol/L (136-145); UREA NITROGEN, BLOOD 36 mg/dL (7-18)
--- NOTE | 2022-05-27 06:00 | NUR ---
FISH EGG PACKER NOTES REASSESSED PATIENT'S BP, BP NOW 143/66, HR: 71
[2022-05-27] MEDS: INSULIN REGULAR, HUMAN 100 UNIT/ML 3 ML VIAL SQ PRN ×4 (06:21→21:41)
[2022-05-27] MEDS: BLOOD SUGAR DIAGNOSTIC 1 EACH STRIP IN SCH ×4 (06:33→21:31)
--- NOTE | 2022-05-27 06:40 | NUR ---
POLE SETTER CLOSING NOTE PATIENT SLEEPING IN BED, ALERT/ORIENTED X 4, PT ABLE TO MAKE NEEDS KNOWN. PATIENT STABLE ON RA, NO S/S OF DISTRESS OR SOB NOTED, BREATHING EVEN AND UNLABORED, SPO2: 95%. PATIENT ON EXTERNAL CRIME SCENE INVESTIGATOR READING SINUS RHYTHM, HR: 78. IV ACCESS ON LAC #20G INTACT AND SALINE LOCKED. MEDICATIONS GIVEN ORDERED, PT NEEDS MET THROUGHOUT SHIFT. SAFETY MEASURES IN PLACE: CALL LIGHT WITHIN REACH, SIDE RAILS UP X 3, BED LOCKED IN LOWEST POSITION, HOB ELEVATED, BED ALARM ON. WILL ENDORSE TO DAYSHIFT RN FOR CONTINUITY OF CARE
--- NOTE | 2022-05-27 07:40 | NUR ---
RN OPENING NOTE RECEIVED PATIENT IN BED AO x 4, ABLE TO RESPONDS PHYSICAL STIMULI. RESPIRATORY EVEN AND UNLABORED IN ROOM AIR. IN NO ACUTE RESPIRATORY DISTRESS OBSERVED. SKIN IS WARM TO TOUCH, KEEP CLEAN/DRY. KEPT ELEVATED HOB FOR ASPIRATION PRECAUTION/ENSURE AIRWAY, ALSO LOWEST BED POSITIONED. BED ALARM IS ON AT ALL THE TIME FOR SAFETY. CALL LIGHT WITHIN REACH, WILL CONTINUE TO MONITOR.
[2022-05-27] MEDS: methylPREDNISolone SOD SUCC 125 MG/2ML VIAL IV SCH (08:37)
[2022-05-27] MEDS: ASPIRIN 81 MG TAB.CHEW PO SCH (08:38)
[2022-05-27] MEDS: hydrALAZINE HCL 50 MG TABLET PO SCH ×3 (08:38→17:06)
[2022-05-27] MEDS: AMLODIPINE BESYLATE 5 MG TABLET PO SCH (08:38)
[2022-05-27] MEDS: ATORVASTATIN 40 MG TABLET PO SCH (08:38)
[2022-05-27] MEDS: METOPROLOL TARTRATE 25 MG TABLET PO SCH ×2 (08:42→21:10)
[2022-05-27] MEDS: NITROGLYCERIN 30 GM TUBE TP SCH (08:43)
[2022-05-27] MEDS: FUROSEMIDE 100 MG/10 ML VIAL IV SCH ×3 (10:48→17:53)
[2022-05-27] MEDS: ISOSORBIDE DINITRATE (20MG) 20 MG TABLET PO SCH ×2 (10:49→17:06)
[2022-05-27] MEDS: NIFEdipine XL (30MG) 30 MG TAB PO SCH (10:49)
[2022-05-27] MEDS: LEVOFLOXACIN (250MG) 250 MG TABLET PO SCH (11:31)
--- NOTE | 2022-05-27 13:05 | NUR ---
DECREASED BP-116/48, HR-68, WILL HOLD HYDRALAZINE 100MG AT THIS TIME.
--- NOTE | 2022-05-27 14:36 | NUR ---
Per Radiologist the procedure will be done tomorrow, 05/28/2022 . ARVIND Adams was informed
--- NOTE | 2022-05-27 18:36 | NUR ---
RN CLOSING NOTE PATIENT RESTING IN BED. IN NO ACUTE DISTRESS OBSERVED. PENDING THORACENTESIS. RESPIRATORY EVEN AND UNLABORED IN ROOM AIR, NO SOB OR DESATURATION NOTED. SKIN IS WARM TO TOUCH KEEP CLEAN/DRY. KEPT ELEVATED HOB FOR ENSURE AIRWAY/ASPIRATION PRECAUTION, AND LOWEST BED POSITION. BED ALARM IS ON AT ALL THE TIME FOR SAFETY. CALL LIGHT WITHIN REACH, WILL ENDORSE DIGITAL MEDIA INTERN.
--- NOTE | 2022-05-27 19:05 | NUR ---
CONTACT PERSON OPENING NOTE PATIENT IS RESTING IN BED. SHE IS ALERT AND ORIENTED, AO X 4. SHE IS ON RA, TOLERATED WELL. NO S/S OF SOB OR DISTRESS. IV ACCESS IS AT HER L AC, #20G, SL. FLUSHED WELL WITH 10 CC NS, IV SITE IS PATENT AND INTACT. PT IS ON EXTERNAL PHYSICIST NUCLEAR, ON THE MONITOR, HER HEART RHYTHM IS SR WITH ST DEPRESSION, AND HER HR IS AT 80S. SAFETY MEASURES ARE IN PLACED: BED IN LOWEST AND LOCKED POSITION; SIDE RAILS UP X 2; CALL LIGHT AND TABLE ARE WITHIN REACH. WILL CONTINUE MONITORING THE PT AND PROVIDE THE CARE PT NEEDS.
[2022-05-27] MEDS: ENOXAPARIN SODIUM 30 MG/0.3 ML DISP.SYRIN SQ SCH (21:00)
--- NOTE | 2022-05-27 21:10 | NUR ---
SANITATION WORKER NOTE PATIENT IS GOING TO HAVE US GUIDED THORACENTESIS TOMORROW. LOVENOX IS HELD DUE TO TOMORROW'S PROCEDURE.
--- NOTE | 2022-05-27 21:40 | NUR ---
ANIMAL CONTROL SUPERVISOR NOTE BLOOD SUGAR CHECK, RESULT IS 360, REGULAR INSULIN GIVEN PER SLIDING SCALE; AND SCHEDULED LANTUS GIVEN PER MD ORDER.
[2022-05-27] MEDS ORDERED: INSULIN GLARGINE, 100 UNIT/ML CARTRIDGE SQ SCH (22:00)
[2022-05-27] MEDS ORDERED: DOXAZOSIN MESYLATE (1 MG) 1 MG TABLET PO SCH (22:00)
--- NOTE | 2022-05-27 23:17 | NUR ---
ACRYLIC FABRICATOR NOTE RECHECKED PT'S BLOOD SUGAR, RESULT IS 381. WILL MONITOR PT'S BLOOD SUGAR LEVEL THROUGH THE SHIFT.
[2022-05-28] VITALS: BP 108/70
[2022-05-28 04:00] VITALS: BP 140/78
[2022-05-28 05:56] LABS: BASOPHILS % (AUTO) 0.1 % (0.0-2.0); HEMATOCRIT 24 % (33-45); HEMOGLOBIN 7.9 g/dL (11.5-14.8); LYMPHOCYTES # (AUTO) 1.2 K/uL (0.8-4.8); LYMPHOCYTES % (AUTO) 11.2 % (20.0-44.0); MEAN CORPUSCULAR HGB CONC 33 g/dl (31.0-36.0); MEAN CORPUSCULAR VOLUME 96 fL (82-100); MONOCYTES # (AUTO) 0.5 K/uL (0.1-1.30); MONOCYTES % (AUTO) 4.7 % (2.0-12.0); NEUTROPHILS # (AUTO) 8.8 K/uL (1.8-8.9); PLATELET COUNT (AUTO) 184 K/uL (150-450); RED BLOOD CELL COUNT(AUTO) 2.53 MIL/uL (4.0-5.2); WHITE BLOOD COUNT (AUTO) 10.5 K/uL (4.3-11.0)
[2022-05-28 06:37] LABS: ALANINE AMINOTRANSFERASE 14 U/L (12-78); ALBUMIN 2.6 g/dL (3.4-5.0); ALKALINE PHOSPHATASE 59 U/L (46-116); ASPARTATE AMINOTRANSFERASE 12 U/L (15-37); BILIRUBIN,TOTAL 0.3 mg/dL (0.2-1.0); CALCIUM, SERUM 8.5 mg/dL (8.5-10.1); CARBON DIOXIDE 25 mmol/L (21-32); CHLORIDE 105 mmol/L (98-107); CREATININE 2.9 mg/dL (0.6-1.3); GLUCOSE 206 mg/dL (74-106); MAGNESIUM 1.9 mg/dL (1.8-2.4); PHOSPHORUS 3.8 mg/dL (2.5-4.9); POTASSIUM 3.7 mmol/L (3.5-5.1); SODIUM SERUM 141 mmol/L (136-145); TOTAL PROTEIN, SERUM 6.2 g/dL (6.4-8.2); UREA NITROGEN, BLOOD 55 mg/dL (7-18)
[2022-05-28] MEDS: BLOOD SUGAR DIAGNOSTIC 1 EACH STRIP IN SCH ×3 (06:37→17:15)
[2022-05-28] MEDS: INSULIN REGULAR, HUMAN 100 UNIT/ML 3 ML VIAL SQ PRN ×3 (06:37→17:14)
--- NOTE | 2022-05-28 06:39 | NUR ---
CASH PROCESSING SPECIALIST NOTE PT BS IS 178, PER SLIDING SCALE, SHOULD ADMINISTER 3 UNITS OF REGULAR INSULIN. PT STATES THAT SHE IS NOT GOING TO EAT THE BREAKFAST THIS MORNING BECAUSE SHE BELIEVES THE FOOD WILL INCREASE HER BLOOD SUGAR. SO, SHE IS NOT GOING TO TAKE THE INSULIN SHOT PER THE SLIDING SCALE. EDUCATED THE PT, PT VERBALIZES UNDERSTANDING.
--- NOTE | 2022-05-28 07:04 | NUR ---
HEALTH SERVICES DIRECTOR CLOSING NOTE PATIENT IS RESTING IN BED. SHE IS ALERT AND ORIENTED, AO X 4. SHE IS ON RA, TOLERATED WELL. NO S/S OF SOB OR DISTRESS. IV ACCESS IS AT HER L AC, #20G, SL. FLUSHED WELL WITH 10 CC NS, IV SITE IS PATENT AND INTACT. PT IS ON EXTERNAL [place] ROUTEMAN, ON THE MONITOR, HER HEART RHYTHM IS SR WITH ST DEPRESSION, AND HER HR IS AT 80S. SAFETY MEASURES ARE IN PLACED: BED IN LOWEST AND LOCKED POSITION; SIDE RAILS UP X 2; CALL LIGHT AND TABLE ARE WITHIN REACH. WILL ENDORSE NEXT SHIFT NURSE FOR CONTINUING CARE.
--- NOTE | 2022-05-28 07:23 | NUR ---
FIELD SERVICES DIRECTOR OPENING NOTES RECEIVED PT IN BED AWAKE, A/O X4. ABLE TO MAKE NEEDS KNOWN, DENIES PAIN OR ANY DISCOMFORTS AT THIS TIME. ON ROOM AIR, TOLERATING WELL, BREATHING EVEN AND UNLABORED. ON TELE-MONITOR WITH CURRENT READING OF NSR, HR 62 BPM AT THIS TIME, NO C/O CARDIAC DISTRESS VOICED. IV ACCESS LAC #20G SL, INTACT, PATENT AND FLUSHES WELL. SAFETY MEASURES IN PLACE: BED IN LOWEST LOCKED POSITION, HOB ELEVATED, SIDE-RAILS UP X2, CALL LIGHT AND TRAY TABLE WITHIN EASY REACH OF PT. WILL CONTINUE TO MONITOR PT ACCORDINGLY.
[2022-05-28 08:00] VITALS: BP 114/50
[2022-05-28] MEDS: ATORVASTATIN 40 MG TABLET PO SCH (08:18)
[2022-05-28] MEDS: ASPIRIN 81 MG TAB.CHEW PO SCH (08:18)
[2022-05-28] MEDS: hydrALAZINE HCL 50 MG TABLET PO SCH ×3 (08:19→17:00)
[2022-05-28] MEDS: ISOSORBIDE DINITRATE (20MG) 20 MG TABLET PO SCH ×2 (08:19→17:00)
[2022-05-28] MEDS: NIFEdipine XL (30MG) 30 MG TAB PO SCH (08:20)
[2022-05-28] MEDS: METOPROLOL TARTRATE 25 MG TABLET PO SCH (08:20)
--- NOTE | 2022-05-28 08:54 | NUR ---
RN NOTES PREDNISONE 20 MG TAB NOT GIVEN, SOLU-MEDROL 40 MG IVP ADMINISTERED EARLIER ALREADY AND CHANGED TO ORAL.
[2022-05-28] MEDS ORDERED: methylPREDNISolone SOD SUCC 40 MG/ML VIAL IV SCH (09:00)
[2022-05-28] MEDS ORDERED: predniSONE 20 MG TABLET PO SCH (09:00)
[2022-05-28] MEDS ORDERED: PRED20TA PO (10:57)
[2022-05-28] MEDS ORDERED: METO25TA20 PO (10:57)
[2022-05-28] MEDS ORDERED: ISOS20TA8 PO (10:57)
[2022-05-28] MEDS ORDERED: LEVO250T59 PO (10:57)
[2022-05-28] MEDS ORDERED: DOXA1TAB4 PO (10:57)
[2022-05-28] MEDS: LEVOFLOXACIN (250MG) 250 MG TABLET PO SCH (11:28)
--- NOTE | 2022-05-28 12:03 | NUR ---
RN NOTES US tech and Dr Clemons came to do US guided thoracentesis but pt noted with small to moderate right pleural effusion. There is no enough safe pocket at this time to perform the thoracentesis.
[2022-05-28 16:00] VITALS: BP 130/50
[2022-05-28 17:00] VITALS: BP 130/50
--- NOTE | 2022-05-28 18:22 | NUR ---
RN DISCHARGED NOTES PT DISCHARGED HOME IN STABLE CONDITION. A/O X4. ABLE TO MAKE NEEDS KNOWN. V/S TAKEN, STABLE AND RECORDED. NO SKIN ISSUES NOTED. ALL BELONGINGS ACCOUNTED FOR AND PT SIGNED BELONGINGS LIST. IV ACCESS ON LAC G#2O REMOVED WITH NO ACTIVE BLEEDING NOTED, DRY DRESSING APPLIED AT SITE. HEALTH TEACHINGS/DISCHARGED INSTRUCTIONS GIVEN TO PT THOROUGHLY ESPECIALLY NEW PRESCRIBED MEDICATIONS AND F/U'S WITH DIFFERENT MD'S, PT VERBALIZED UNDERSTANDING. PT LEFT UNIT @ 1815 VIA WHEELCHAIR ACCOMPANIED BY KARTHIK Sawyer AND PT'S ABRIL. CHARGE NURSE AWARE OF D/C.
== END 2022-05-28 18:30 | disposition home health service (06) | DRG 280 ==
LOC: ER 18:27 → TELE 05-25 01:12 → MED 05-28 10:56
PROVIDERS: ADMIT Internal Medicine; ATTEND Nurse Practitioner Family
DX: I13.0 Hypertensive heart and chronic kidney disease with heart failure and stage 1 through stage 4 chronic kidney disease, or unspecified chronic kidney disease (principal); I21.A1 Myocardial infarction type 2; I50.33 Acute on chronic diastolic (congestive) heart failure; N17.0 Acute kidney failure with tubular necrosis; N39.0 Urinary tract infection, site not specified; Z68.41 Body mass index [BMI] 40.0-44.9, adult; J90 Pleural effusion, not elsewhere classified; J98.11 Atelectasis; I16.0 Hypertensive urgency; N18.9 Chronic kidney disease, unspecified; Z20.822 Contact with and (suspected) exposure to COVID-19; E11.22 Type 2 diabetes mellitus with diabetic chronic kidney disease; E78.5 Hyperlipidemia, unspecified; Z88.0 Allergy status to penicillin; Z91.018 Allergy to other foods; Z79.82 Long term (current) use of aspirin; Z79.4 Long term (current) use of insulin; Z79.84 Long term (current) use of oral hypoglycemic drugs; Z79.899 Other long term (current) drug therapy; B96.89 Other specified bacterial agents as the cause of diseases classified elsewhere; R60.9 Edema, unspecified; D50.9 Iron deficiency anemia, unspecified; D63.8 Anemia in other chronic diseases classified elsewhere; E87.6 Hypokalemia; E66.01 Morbid (severe) obesity due to excess calories; Z87.891 Personal history of nicotine dependence; T50.2X5A Adverse effect of carbonic-anhydrase inhibitors, benzothiadiazides and other diuretics, initial encounter; Y92.9 Unspecified place or not applicable; G47.33 Obstructive sleep apnea (adult) (pediatric); J98.01 Acute bronchospasm; F32.A Depression, unspecified; F41.9 Anxiety disorder, unspecified
CPT/HCPCS: 36415; 71045-TC; 76604-TC; 76770-TC; 80048-TC; 80053-TC; 80076-TC; 81001; 82570-TC; 82728-TC; 82962-TC; 83540-TC; 83605-TC; 83735-TC; 83880; 84100-TC; 84300-TC; 84439-TC; 84443-TC; 84484-TC; 85025-TC; 85610-TC; 87040-TC; 87081-TC; 87086-TC; 93307-TC; A4223; C9803; G0378; J0360; J0696; J1650; J1815; J1940; J2060; J2920; J2930; J3490; J7050; J7060

== ENCOUNTER 2022-06-09 22:48 | Emergency (ER) | payer MEDICARE ==
[~2022-06-09] VITALS: Ht 160 cm; Wt 99.8 kg
[~2022-06-09 22:48] MED LIST changes: +ALLO100T PO; -BENA20TA9 PO; +BIOT25008 PO; -CHOL100044 PO; +CYAN25003 SL; +DOXA1TAB4 PO; -FLUC200T8 PO; -GLIP10TA11 PO; +ISOS20TA8 PO; +LEVO250T59 PO; +METO25TA20 PO; +OMEG1CAP40 PO; -PIOG15TA8 PO; +PRED20TA PO; +PSYL0.5245 PO; +SPIR25TA PO; +TERA5CAP7 PO; +TURM500C7 PO
--- NOTE | 2022-06-09 23:08 | NUR ---
LUIS FROM HOME CC OF HYPOGLYCEMIA 60 WITH AMS PACKAGING TECH, D10 GIVEN IVP BY EMT, PT BECAME AOX4 WITH 203 GLUCOSE RECHECKED, BREATHING UNLABORED, SATURATION AT 98% ON ROOM AIR. PATIENT GIVEN A SANDWICH AND CONSUMED 50%+APPLE JUICE. PT ATTACHED TO MONITOR AND PULSE OX. AWAITING MD GOODSON.
[2022-06-09 23:28] LABS: BASOPHILS % (AUTO) 0.2 % (0.0-2.0); EOSINOPHILS % (AUTO) 0.9 % (0.0-6.0); HEMATOCRIT 28 % (33-45); HEMOGLOBIN 8.8 g/dL (11.5-14.8); LYMPHOCYTES % (AUTO) 9.6 % (20.0-44.0); MEAN CORPUSCULAR HGB CONC 32 g/dl (31.0-36.0); MEAN CORPUSCULAR VOLUME 97 fL (82-100); MONOCYTES # (AUTO) 0.4 K/uL (0.1-1.30); MONOCYTES % (AUTO) 3.9 % (2.0-12.0); NEUTROPHILS # (AUTO) 8.9 K/uL (1.8-8.9); NEUTROPHILS % (AUTO) 85.4 % (43.0-81.0); PLATELET COUNT (AUTO) 149 K/uL (150-450); RED BLOOD CELL COUNT(AUTO) 2.83 MIL/uL (4.0-5.2); WHITE BLOOD COUNT (AUTO) 10.5 K/uL (4.3-11.0)
[2022-06-10 00:04] LABS: CALCIUM, SERUM 8.5 mg/dL (8.5-10.1); CARBON DIOXIDE 27 mmol/L (21-32); CHLORIDE 110 mmol/L (98-107); CREATININE 2.1 mg/dL (0.6-1.3); GLUCOSE 99 mg/dL (74-106); POTASSIUM 3.7 mmol/L (3.5-5.1); SODIUM SERUM 144 mmol/L (136-145); UREA NITROGEN, BLOOD 32 mg/dL (7-18)
--- NOTE | 2022-06-10 00:57 | NUR ---
URINE COLLECTED, SENT TO LAB
[2022-06-10 01:25] LABS: BILIRUBIN,URINE NEGATIVE (NEGATIVE); COLOR,URINE DARK YELLOW (YELLOW); LEUKOCYTE ESTERASE ,URINE TRACE (NEGATIVE); NITRITE, URINE NEGATIVE (NEGATIVE); PROTEIN,URINE 2+ mg/dl (NEGATIVE); UGLUCOSE NEGATIVE (NEGATIVE); UROBILINOGEN,URINE 0.2 EU/dL (0.2)
[2022-06-10 01:26] LABS: BACTERIA,URINE Few /HPF (None Seen); SQUAMOUS EPITHELIAL CELL,UR Moderate /HPF (None Seen)
--- NOTE | 2022-06-10 03:18 | NUR ---
CALLED PT'S FOR PT GOODYEAR WELTER BUT NO ANSWER, LEFT MESSAGE
--- NOTE | 2022-06-10 06:03 | NUR ---
CALLED PT'S ONCE AGAIN BUT STILL NO ANSWER. WILL CALL BACK AGAIN.
--- NOTE | 2022-06-10 06:41 | NUR ---
telephone call to pt's at [phone] multiple times, no answer. left voice message and call back number.
--- NOTE | 2022-06-10 09:13 | NUR ---
Patient discharged to home in stable condition. Written and verbal after care instructions given. Patient verbalizes understanding of instruction.
[2022-06-10 09:14] VITALS: BP 144/61
== END 2022-06-10 09:17 | disposition home or self-care (01) ==
LOC: ER 22:50
DX: E11.649 Type 2 diabetes mellitus with hypoglycemia without coma (principal); I10 Essential (primary) hypertension; E78.5 Hyperlipidemia, unspecified; Z79.899 Other long term (current) drug therapy; Z79.82 Long term (current) use of aspirin; Z79.4 Long term (current) use of insulin; Z88.0 Allergy status to penicillin
CPT/HCPCS: 36415; 80048-TC; 81001; 82962-TC; 85025-TC

== ENCOUNTER 2023-01-20 10:13 | Emergency (ER) | payer MEDICARE ==
[~2023-01-20] VITALS: Ht 160 cm; Wt 86.2 kg
[2023-01-20] MEDS ORDERED: TDAP [DIPH/PERTUSSIS/TET] 0.5 ML VIAL IM ONE ×2 (10:56→11:00)
[2023-01-20] MEDS ORDERED: LIDOCAINE 1%-EPI 1:100,000 20 ML VIAL TP ONE (12:30)
[2023-01-20] MEDS ORDERED: LIDOCAINE 1%-EPI 1:100,000 20 ML VIAL ONE (12:42)
[2023-01-20 13:16] VITALS: BP 140/72; TEMP 98.4; O2SAT 100
== END 2023-01-20 13:16 | disposition home or self-care (01) ==
LOC: ER 10:16
DX: S01.01XA Laceration without foreign body of scalp, initial encounter (principal); I10 Essential (primary) hypertension; E78.5 Hyperlipidemia, unspecified; E11.9 Type 2 diabetes mellitus without complications; E66.9 Obesity, unspecified; Z79.899 Other long term (current) drug therapy; Z79.82 Long term (current) use of aspirin; Z79.4 Long term (current) use of insulin; Z88.0 Allergy status to penicillin; W05.0XXA Fall from non-moving wheelchair, initial encounter; Y93.89 Activity, other specified; Y92.89 Other specified places as the place of occurrence of the external cause; Y99.8 Other external cause status
CPT/HCPCS: 12002; 70450; 90471; 90715; 99285; A6403; J3490

== ENCOUNTER 2023-01-27 10:46 | Emergency (ER) | payer MEDICARE ==
[~2023-01-27] VITALS: Ht 160 cm; Wt 84.8 kg
[2023-01-27 11:37] VITALS: BP 171/72; TEMP 97.8; O2SAT 97
== END 2023-01-27 11:37 | disposition home or self-care (01) ==
LOC: ER 10:49
DX: S01.01XD Laceration without foreign body of scalp, subsequent encounter (principal); I10 Essential (primary) hypertension; E78.5 Hyperlipidemia, unspecified; E11.9 Type 2 diabetes mellitus without complications; Z88.0 Allergy status to penicillin; Z88.8 Allergy status to other drugs, medicaments and biological substances; Z79.4 Long term (current) use of insulin; Z79.899 Other long term (current) drug therapy; X58.XXXD Exposure to other specified factors, subsequent encounter
CPT/HCPCS: 99281; A6403